=== PATIENT | female | born 1975 | race Caucasian/White ===

== ENCOUNTER 2017-03-16 15:59 | Inpatient (IN) | payer SELFPAY ==
--- NOTE | 2017-03-16 16:48 | ER Document Report ---
ED Medical Screen (RME) - General Chief Complaint: Abdominal Pain Stated Complaint: ABDOMINAL PAIN Time Seen by Provider: 03/16/17 16:24 Notes: This 41-year-old female patient with 2 day history of left lower quadrant abdominal pain and nausea. She has been taking Zofran regularly to prevent vomiting. She has past medical history of diverticulitis at least 4 times in the past and has not had insurance to have colon resection. She takes medication for high blood pressure, allergies, and GERD. She is allergic to Levaquin causing oral ulcers, but she has no problems taking Cipro. I have greeted and performed a rapid initial assessment of this patient. A comprehensive ED assessment and evaluation of the patient, analysis of test results and completion of the medical decision making process will be conducted by additional ED providers. TRAVEL OUTSIDE OF THE [place] IN LAST 30 DAYS: No - Related Data Allergies/Adverse Reactions: levofloxacin [From Levaquin] Allergy (Verified 03/16/17 16:08) Past Medical History - Social History Chew tobacco use (# tins/day): No Frequency of alcohol use: Rare Drug Abuse: None - Past Medical History Cardiac Medical History: Reports: Hx Coronary Artery Disease, Hx Hypertension Pulmonary Medical History: Reports: Hx Asthma, Hx Pneumonia Renal/ Medical History: Reports: Hx Kidney Stones - lithrotripsy. Denies: Hx Peritoneal Dialysis GI Medical History: Reports: Hx Diverticulitis, Hx Hiatal Hernia Past Surgical History: Reports: Hx Cardiac Catheterization, Hx Tonsillectomy, Hx Tubal Ligation - Immunizations Hx Diphtheria, Pertussis, Tetanus Vaccination: Yes Physical Exam - Vital signs Vitals: Temp Pulse Resp BP Pulse Ox 98.3 F 89 18 150/82 H 99 03/16/17 16:06 03/16/17 16:06 03/16/17 16:06 03/16/17 16:06 03/16/17 16:06 Course - Vital Signs Vital signs: Temp Pulse Resp BP Pulse Ox 98.3 F 89 18 150/82 H 99 03/16/17 16:06 03/16/17 16:06 03/16/17 16:06 03/16/17 16:06 03/16/17 16:06
[2017-03-16] MEDS ORDERED: NORMAL SALINE 1000 ML 1,000 ML IV PRN (17:18)
[2017-03-16] MEDS ORDERED: MORPHINE SULFATE 10 MG/ML INJ IV ONE ×2 (17:18→20:10)
[2017-03-16] MEDS ORDERED: ONDANSETRON HCL INJ/PF 4 MG/2 ML SDV IV ONE (17:18)
--- NOTE | 2017-03-16 17:20 | ER Document Report ---
ED GI/ - General Chief Complaint: Abdominal Pain Stated Complaint: ABDOMINAL PAIN Time Seen by Provider: 03/16/17 16:24 Mode of Arrival: Ambulatory Information source: Patient TRAVEL OUTSIDE OF THE [place] IN LAST 30 DAYS: No - HPI Patient complains to provider of: Abdominal pain, Diarrhea Onset: Other - 2-3 days Timing/Duration: Gradual, Persistent, Worse Quality of pain: Pressure, Sharp Severity at maximum: Moderate Severity in ED: Moderate Location: LLQ Associated symptoms: Diarrhea, Nausea Similar symptoms previously: Yes Notes: 03/16/17 17:35 Patient is a 41-year-old female presenting to the emergency room today complaining of 3 day history of left lower quadrant abdominal pain that has been worsening, it is associated with nausea and diarrhea, no vomiting, no fever , no urinary symptoms, patient has a history of diverticulitis in the past with similar symptoms - Related Data Allergies/Adverse Reactions: levofloxacin [From Levaquin] Allergy (Verified 03/16/17 20:37) Past Medical History - General Information source: Patient - Social History Smoking Status: Former Smoker Chew tobacco use (# tins/day): No Frequency of alcohol use: Rare Drug Abuse: None Family History: Reviewed & Not Pertinent - Past Medical History Cardiac Medical History: Reports: Hx Coronary Artery Disease, Hx Hypertension Pulmonary Medical History: Reports: Hx Asthma, Hx Pneumonia Renal/ Medical History: Reports: Hx Kidney Stones - lithrotripsy. Denies: Hx Peritoneal Dialysis GI Medical History: Reports: Hx Diverticulitis, Hx Hiatal Hernia Past Surgical History: Reports: Hx Cardiac Catheterization, Hx Tonsillectomy, Hx Tubal Ligation - Immunizations Hx Diphtheria, Pertussis, Tetanus Vaccination: Yes Review of Systems - Review of Systems Constitutional: No symptoms reported EENT: No symptoms reported Cardiovascular: No symptoms reported Respiratory: No symptoms reported Gastrointestinal: See HPI Genitourinary: No symptoms reported Female Genitourinary: No symptoms reported Musculoskeletal: No symptoms reported Skin: No symptoms reported Hematologic/Lymphatic: No symptoms reported Neurological/Psychological: No symptoms reported -: Yes All other systems reviewed and negative Physical Exam - Vital signs Vitals: Temp Pulse Resp BP Pulse Ox 98.3 F 89 18 150/82 H 99 03/16/17 16:06 03/16/17 16:06 03/16/17 16:06 03/16/17 16:06 03/16/17 16:06 Interpretation: Normal - General General appearance: Appears well, Alert - HEENT Head: Normocephalic, Atraumatic Eyes: Normal Pupils: PERRL - Respiratory Respiratory status: No respiratory distress Chest status: Nontender Breath sounds: Normal Chest palpation: Normal - Cardiovascular Rhythm: Regular Heart sounds: Normal auscultation Murmur: No - Abdominal Inspection: Obese Distension: No distension Bowel sounds: Normal Tenderness: Tender - Left lower quadrant Organomegaly: No organomegaly - Back Back: Normal, Nontender - Extremities General upper extremity: Normal inspection, Nontender, Normal color, Normal ROM , Normal temperature General lower extremity: Normal inspection, Nontender, Normal color, Normal ROM , Normal temperature, Normal weight bearing. No: Brigid's sign - Neurological Neuro grossly intact: Yes Cognition: Normal Orientation: AAOx4 [place] Coma Scale Eye Opening: Spontaneous [place] Coma Scale Verbal: Oriented Dwayne Coma Scale Motor: Obeys Commands [place] Coma Scale Total: 15 Speech: Normal Motor strength normal: LUE, RUE, LLE, RLE Sensory: Normal - Psychological Associated symptoms: Normal affect, Normal mood - Skin Skin Temperature: Warm Skin Moisture: Dry Skin Color: Normal Course - Re-evaluation Re-evalutation: 03/16/17 20:39 Lab and imaging findings discussed with patient at bedside which are consistent with acute diverticulitis, patient does report an allergy to Levaquin, however she reports that she is able to take Cipro without any adverse reactions, therefore Cipro and Flagyl were ordered, patient was discussed with the hospitalist service who agrees to admit for further evaluation and treatment - Vital Signs Vital signs: Temp Pulse Resp BP Pulse Ox 98.3 F 89 18 150/82 H 99 03/16/17 16:06 03/16/17 16:06 03/16/17 16:06 03/16/17 16:06 03/16/17 16:06 - Laboratory Result Diagrams: 03/16/17 17:44 03/16/17 17:44 Laboratory results interpreted by me: 03/16/17 03/16/17 17:44 17:44 WBC 15.2 H MCV 74 L MCH 25.6 L RDW 15.1 H Absolute Neutrophils 10.4 H Creatinine 0.51 L - Diagnostic Test Radiology reviewed: Image reviewed, Reports reviewed - Transfer of Care Care transferred to following provider: Dr. Oliveira Discharge - Discharge Clinical Impression: Acute diverticulitis Condition: Fair Disposition: ADMITTED INPATIENT Admitting Provider: Hospitalist Unit Admitted: Telemetry Referrals: JIMY STONER MD [Primary Care Provider] - Follow up as needed
[2017-03-16 17:58] LABS: ABSOLUTE BASOPHILS # (AUTO) 0.1 10^3/uL (0.0-0.2); ABSOLUTE EOSINOPHILS # (AUTO) 0.2 10^3/uL (0.0-0.6); ABSOLUTE LYMPHOCYTES (AUTO) 3.6 10^3/uL (0.5-4.7); ABSOLUTE MONOCYTES (AUTO) 0.9 10^3/uL (0.1-1.4); ABSOLUTE NEUT (AUTO) 10.4 10^3/uL (1.7-8.2); BASOPHILS % (AUTO) 0.6 % (0-2); EOSINOPHILS % (AUTO) 1.2 % (0-6); HEMATOCRIT 38.4 % (36.0-47.0); HEMOGLOBIN 13.3 g/dL (12.0-15.5); HGB HCT DIFFERENCE 1.5; LYMPHOCYTES % (AUTO) 23.9 % (13-45); MEAN CORPUSCULAR HEMOGLOBIN 25.6 pg (27.0-33.4); MEAN CORPUSCULAR HGB CONC 34.6 g/dL (32.0-36.0); MEAN CORPUSCULAR VOLUME 74 fl (80-97); MONOCYTES % (AUTO) 5.6 % (3-13); RED BLOOD COUNT 5.19 10^6/uL (3.72-5.28); RED CELL DISTRIBUTION WIDTH 15.1 % (11.5-14.0); SEGMENTED NEUTROPHILS % (AUTO) 68.7 % (42-78); WHITE BLOOD COUNT 15.2 10^3/uL (4.0-10.5)
[2017-03-16 18:22] LABS: ALANINE AMINOTRANSFERASE 23 U/L (9-52); ALBUMIN 4.3 g/dL (3.5-5.0); ALKALINE PHOSPHATASE 107 U/L (38-126); ANION GAP 14 (5-19); ASPARTATE AMINO TRANSFERASE 16 U/L (14-36); BILIRUBIN,DIRECT 0.4 mg/dL (0.0-0.4); BILIRUBIN,TOTAL 0.7 mg/dL (0.2-1.3); BLOOD UREA NITROGEN 11 mg/dL (7-20); CALCIUM 9.8 mg/dL (8.4-10.2); CARBON DIOXIDE 22 mmol/L (22-30); CHLORIDE 102 mmol/L (98-107); CREATININE RESULT 0.51 mg/dL (0.52-1.25); GLUCOSE 75 mg/dL (75-110); POTASSIUM 3.8 mmol/L (3.6-5.0); SODIUM 138.3 mmol/L (137-145); TOTAL PROTEIN 7.7 g/dL (6.3-8.2)
[2017-03-16 18:44] LABS: APPEARANCE,URINE CLEAR; BILIRUBIN,URINE NEGATIVE (NEGATIVE); GLUCOSE, URINE NEGATIVE (NEGATIVE); KETONES,URINE NEGATIVE (NEGATIVE); LEUKOCYTE ESTERASE,URINE NEGATIVE (NEGATIVE); NITRITE,URINE NEGATIVE (NEGATIVE); PROTEIN,URINE NEGATIVE (NEGATIVE); URINE SPECIFIC GRAVITY 1.011; UROBILINOGEN,URINE NEGATIVE mg/dL (<2.0)
[2017-03-16] MEDS ORDERED: METOCLOPRAMIDE HCL INJ/PF 10 MG/2 ML SDV IV ONE (20:10)
--- NOTE | 2017-03-16 20:10 | RADIOLOGY REPORT (SQ) ---
EXAM DESCRIPTION: CT ABD/PELVIS WITH IV ORAL COMPLETED DATE/TIME: 03/16/2017 7:56 pm REASON FOR STUDY: LLQ PAIN X 2 DAYS, PMH DIVERTICULITIS X 4 COMPARISON: 02/26/2016 TECHNIQUE: CT scan of the abdomen and pelvis performed with intravenous and oral contrast using christa bel scanning technique with dynamic intravenous contrast injection. Images reviewed with lung, soft t issue, and bone windows. Reconstructed coronal and sagittal MPR images reviewed. Delayed images for e valuation of the urinary system also acquired. All images stored on PACS. All CT scanners at this facility use dose modulation, iterative reconstruction, and/or weight based d osing when appropriate to reduce radiation dose to as low as reasonably achievable (ALARA). [facility]: Dose Right [facility]: CareDose [facility]: Dose Right [facility]: Teradose 4D [facility]: [place] CONTRAST TYPE AND DOSE: contrast/concentration: Isovue 370.00 mg/ml; Total Contrast Delivered: 100.0 ml; Total Saline Delivered: 45.0 ml RENAL FUNCTION: None required. The patient is less than 50 years old. RADIATION DOSE: Up-to-date CT equipment and radiation dose reduction techniques were employed. CTDIv ol: 21.3 - 22.4 mGy. DLP: 2238 mGy-cm. . LIMITATIONS: None. FINDINGS: LOWER CHEST: No significant findings. No nodules or infiltrates. LIVER: Normal size. No masses. No dilated ducts. SPLEEN: Normal size. No focal lesions. PANCREAS: No masses. No significant calcifications. No adjacent inflammation or peripancreatic fluid collections. Pancreatic duct not dilated. GALLBLADDER: No identified stones by CT criteria. No inflammatory changes to suggest cholecystitis. ADRENAL GLANDS: No significant masses or asymmetry. RIGHT KIDNEY AND URETER: No solid masses. No significant calcifications. No hydronephrosis or hyd roureter. LEFT KIDNEY AND URETER: No solid masses. No significant calcifications. No hydronephrosis or hydr oureter. AORTA AND VESSELS: No aneurysm. No dissection. Renal arteries, SMA, celiac without stenosis. RETROPERITONEUM: No retroperitoneal adenopathy, hemorrhage or masses. BOWEL AND PERITONEAL CAVITY: Acute inflammatory change involving the distal descending/sigmoid colon in the setting of diverticula compatible with acute diverticulitis. Small and large bowel loops are otherwise normal. No abscess or free air. APPENDIX: Normal. PELVIS: No significant masses. Normal bladder. No free fluid. ABDOMINAL WALL: No masses. No hernias. BONES: No significant or acute findings. OTHER: No other significant finding. IMPRESSION: ACUTE DIVERTICULITIS OF THE DISTAL DESCENDING/SIGMOID COLON. NO ABSCESS OR FREE AIR. TECHNICAL DOCUMENTATION: JOB ID: [id number] Quality ID # [id number]: Final reports with documentation of one or more dose reduction techniques (e.g., Au tomated exposure control, adjustment of the mA and/or kV according to patient size, use of iterative reconstruction technique) 2010 [employer] All Rights Reserved
[2017-03-16] MEDS ORDERED: HYDROMORPHONE HCL INJ/PF 2 MG/ML AMPULE IV ONE (20:15)
[2017-03-16] MEDS ORDERED: METRONIDAZOLE 500 MG/NS RTU 100 ML IV ONE (20:16)
[2017-03-16] MEDS ORDERED: INSULIN LISPRO 100 UNIT/ML 3 ML VIAL SUBCUT PRN (20:38)
[2017-03-16] MEDS ORDERED: GLUCAGON,HUMAN RECOMB 1 MG INJ IM PRN (20:38)
[2017-03-16] MEDS ORDERED: DEXTROSE 50%-WATER 25 GM/50 ML DISP.SYRIN IV PRN ×2 (20:38)
[2017-03-16] MEDS ORDERED: DEXTROSE 40% GEL 15 GM TUBE PO PRN ×2 (20:38)
[2017-03-16] MEDS ORDERED: MORPHINE SULFATE 10 MG/ML INJ IV PRN (20:40)
[2017-03-16] MEDS ORDERED: PROMETHAZINE HCL 25 MG TABLET PO PRN (20:40)
[2017-03-16] MEDS ORDERED: ACETAMINOPHEN 325 MG TABLET PO PRN (20:40)
[2017-03-16 20:44] LABS: ADD ON TESTING BLD IN LAB ACKNOWLEDGE
[2017-03-16 20:54] LABS: MAGNESIUM 1.6 mg/dL (1.6-2.3)
[2017-03-16] MEDS ORDERED: CIPROFLOXACIN 400 MG/D5W RTU 400 MG/200 ML RTUPB IV ONE (21:00)
[2017-03-16] MEDS ORDERED: IPRATROPIUM/ALBUTEROL 0.5-2.5 MG/3 ML AMPUL NEB PRN (22:46)
[2017-03-16] MEDS ORDERED: PROMETHAZINE HCL INJ 25 MG/1 ML VIAL IV PRN (22:46)
--- NOTE | 2017-03-16 23:20 | PDOC H&P ---
History of Present Illness Admission Date/PCP: 03/16/17 20:46 JIMY STONER Patient complains of: Abdominal pain History of Present Illness: CARLOS EAGLE is a 41 year old obese female, with underlying hypertension, asthma, type 2 diabetes mellitus, history of bigeminy, on metoprolol for same, and a history of 3-4 prior episodes of diverticulitis, all treated medically, who presents to the emergency room for evaluation of above complaint. Patient has been discussed with emergency room physician who evaluated the patient. She describes a 3 day history of intermittent combination sharp and cramping left lower quadrant abdominal pain which increases with movement and eating. Positive associated chills, and several watery stools, without blood. No antibiotic usage. No nausea or vomiting. No dysuria. States this is quite similar to previous episodes of diverticulitis. Has never had colonoscopy. Dictation via voice recognition software. Laboratory results are listed in [employer] and are reviewed. X-ray summary results are listed below, with full report(s) reviewed. . Social history/personal habits: . Has children. 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 Allergies/adverse reactions are listed in [employer] and are reviewed. No problems with Cipro. Home medications initially autopopulated into [employer] may not accurately reflect patient's true medications, dosages, and/or frequencies. business technology architect to reconcile medications. Medications also discussed with patient. REVIEW OF SYSTEMS: Constitutional: No fever or chills. Eyes: Wears glasses. ENT: No swallowing problems or complaints. Denies hearing loss. Pulmonary: No current complaints. Cardiovascular: No current complaints, including chest pain. Gastrointestinal: See history and present illness. Skin: No current complaints, including rashes. Hematologic: Easy bruising. Neurologic: No current complaints, including numbness or tingling. Musculoskeletal: Mild joint pain, hands. Psychiatric: Denies anxiety or depression. Endocrine: No current complaints, including polyuria. Genitourinary: No current complaints, including dysuria. PHYSICAL EXAMINATION: 5 feet 4 inches tall. 101.2 kg. BMI 38.3 kg/m. Blood pressure 137/55. Pulse 93 and regular. 99% saturation on room air. Respirations are 20 and unlabored. Temperature 97.8. initially present at her side; patient approves. He leaves just prior to physical exam. Female emergency room nurse Wanda is present. Obese otherwise well-developed female appearing approximately her stated age. Appears to feel a bit under the weather, so to speak. Nausea and occasional small amounts of emesis. Pleasant and cooperative otherwise. Skin is warm and dry. No grossly obvious evidence of rash in areas of skin examined. No subcutaneous nodules palpated. ENT: Hearing grossly normal to normal conversation. Tongue midline on protrusion pink and slightly tacky. Eyes: No scleral icterus. Pupils equal and reactive to light at 4 mm. [place] conjunctivae. Neck is supple and nontender to gentle active range of motion and palpation. Midline trachea. No palpable thyroid nodule mass enlargement or tenderness. Lymphatic: No palpable cervical or clavicular nodes. Neck and lymphatic exams limited by patient body habitus. Psychiatric: Reasonable insight into acute and chronic medical issues. Oriented to time location and why here. Lungs: Auscultation reveals clear and equal breath sounds bilaterally. No use of accessory respiratory muscles. Cardiovascular: Heart regular rate and rhythm, without gallop murmur or rub. No carotid or abdominal aortic bruits. No ankle or pedal edema. Palpable dorsalis pedis pulses. Abdomen:soft somewhat obese with positive bowel sounds. Nontender other than mild left lower quadrant discomfort to palpation, without evidence of guarding or peritoneal signs. Unable to adequately evaluate abdomen for masses or organomegaly due to discomfort and body habitus. Extremities: Feet are warm and dry. No calf tenderness to compression. No grossly obvious visual evidence of calf swelling. Gentle manipulation of lower extremities fails to reveal any obvious evidence of injury or instability to knees hips or ankles. Neurologic: Moves upper extremities grossly normally. Patellar reflexes absent. Absent Babinski. Light touch is intact at feet. Dorsiflexion and plantarflexion of feet 5 / 5 and symmetric. Past Medical History Cardiac Medical History: Reports: Hyperlipidema - History of same; taken off medications by provider, Hypertension, Other - History of bigeminy; 2 heart cath , negative 2013. No stent or angioplasty. Denies: Atrial Fibrillation, Congestive Heart Failure, Coronary Artery Disease, DVT, Myocardial Infarction, Pulmonary Embolism Pulmonary Medical History: Reports: Asthma, Pneumonia Denies: Chronic Obstructive Pulmonary Disease (COPD), Sleep Apnea EENT Medical History: Reports: Eyes - Glasses Denies: Ears, Throat Neurological Medical History: Denies: Hemorrhagic CVA, Ischemic CVA, Seizures Endocrine Medical History: Reports: Diabetes Mellitus Type 2 Denies: Diabetes Mellitus Type 1, Hyperthyroidism, Hypothyroidism Renal/ Medical History: Reports: Nephrolithiasis GI Medical History: Reports: Diverticulitis, Hiatal Hernia Denies: Cirrhosis, Hepatitis, Peptic Ulcer Disease Musculoskeltal Medical History: Reports: Other - Joint pain involving her hands Skin Medical History: Reports: None Psychiatric Medical History: Denies: Alcohol Dependency, Depression, General Anxiety Disorder, Substance Abuse, Tobacco Dependency Hematology: Reports: Other - Easy bruising Infectious Medical History: Denies: Hepatitis B, Hepatitis C Past Surgical History Past Surgical History: Reports: Cardiac Catheterization, Tonsillectomy, Tubal Ligation, Other - Lithotripsy 7 Denies: Coronary Stent - cath 2; second in 2013; no stent or angioplasty Social History Information Source: Patient, Emergency Med Personnel, [facility] Records Lives with: Spouse/Significant other Smoking Status: Former Smoker Frequency of Alcohol Use: Rare Drugs: None - Advance Directive Resuscitation Status: Full Code Surrogate healthcare decision maker:: Family History Family History: Reviewed & Not Pertinent Parental Family History Reviewed: Yes - Mother of [place]; father alive with hypertension Children Family History Reviewed: Yes - Healthy Sibling(s) Family History Reviewed.: Yes - Hypertension Medication/Allergy Home Medications: Aspirin [Aspirin EC] 81 mg PO DAILY 03/16/17 Calcium Carbonate [Antacid] 200 mg PO ASDIR PRN 03/16/17 Losartan/Hydrochlorothiazide [Losartan-Hctz 100-25 mg Tab] 1 tab PO QAM Metformin HCl [Glucophage 500 mg Tablet] 500 mg PO BIDACBS 03/16/17 Metoprolol Tartrate [Lopressor 25 mg Tablet] 25 mg PO QHS 03/16/17 Omeprazole 20 mg PO DAILY 03/16/17 Allergies/Adverse Reactions: levofloxacin [From Levaquin] Allergy (Verified 03/16/17 20:37) Physical Exam Vital Signs: Temp Pulse Resp BP Pulse Ox 97.8 F 98 20 141/70 H 98 03/16/17 21:31 03/16/17 21:31 03/16/17 22:16 03/16/17 21:31 03/16/17 22:16 Results Impressions: Abdomen/Pelvis CT 03/16/17 16:45 IMPRESSION: ACUTE DIVERTICULITIS OF THE DISTAL DESCENDING/SIGMOID COLON. NO ABSCESS OR FREE AIR. Assessment & Plan - Diagnosis (1) Diabetes mellitus type 2 in obese Is this a current diagnosis for this admission?: Yes Plan: Ice chips only at present.. Accu-Cheks with appropriate sliding scale coverage. Resume home medications as appropriate once these have been determined and reviewed. (2) HIST BIGEMINY Is this a current diagnosis for this admission?: Yes Plan: On metoprolol, 25 mg every evening for same. Resume home medications as appropriate once these have been determined and reviewed. (3) Asthma Qualifiers: Asthma severity: unspecified severity Asthma complication type: uncomplicated Qualified Code(s): J45.909 - Unspecified asthma, uncomplicated Is this a current diagnosis for this admission?: Yes Plan: As needed DuoNeb (4) Acute diverticulitis Is this a current diagnosis for this admission?: Yes Plan: Ice chips. Bowel rest otherwise. IV Pepcid. Surgery consult. Zosyn. As needed medication for control of pain, nausea and vomiting. I have strongly encouraged patient not to get out of bed without notifying staff , to avoid a fall with injury. Knee high SCDs for DVT prophylaxis, along with subcutaneous Lovenox. Impression and plans were discussed with patient, who concurs. Time spent in evaluation and management of patient: 75 minutes. - Time Time Spent: Greater than 70 Minutes Medications reviewed and adjusted accordingly: Yes Anticipated discharge: Home Within: within 72 hours - Inpatient Certification Based on my medical assessment, after consideration of the patient's comorbidities, presenting symptoms, or acuity I expect that the services needed warrant INPATIENT care.: Yes I certify that my determination is in accordance with my understanding of Medicare's requirements for reasonable and necessary INPATIENT services [42 CFR 412.3e].: Yes Medical Necessity: Need Close Monitoring Due to Risk of Patient Decompensation, Need For IV Fluids, Need for IV Antibiotics, Risk of Complication if Not Cared For in Hospital Post Hospital Care: D/C or Transfer Summary
[2017-03-16] MEDS ORDERED: PIPERACILLIN/TAZOBACTAM 3.375 GM VIAL IV PRN (23:41)
[2017-03-16] MEDS ORDERED: NORMAL SALINE 1000 ML 1,000 ML IV ONE (23:45)
[2017-03-16] MEDS ORDERED: METOPROLOL TARTRATE PF/INJ 5 MG/5 ML SDV IV ONE (23:45)
[2017-03-17] MEDS: MORPHINE SULFATE 10 MG/ML INJ IV PRN ×3 (00:27→14:54)
[2017-03-17 05:25] LABS: ABSOLUTE EOSINOPHILS # (AUTO) 0.1 10^3/uL (0.0-0.6); ABSOLUTE LYMPHOCYTES (AUTO) 2.3 10^3/uL (0.5-4.7); ABSOLUTE MONOCYTES (AUTO) 0.6 10^3/uL (0.1-1.4); ABSOLUTE NEUT (AUTO) 9.2 10^3/uL (1.7-8.2); BASOPHILS % (AUTO) 0.4 % (0-2); EOSINOPHILS % (AUTO) 0.5 % (0-6); HEMATOCRIT 34.4 % (36.0-47.0); HEMOGLOBIN 11.9 g/dL (12.0-15.5); HGB HCT DIFFERENCE 1.3; LYMPHOCYTES % (AUTO) 18.5 % (13-45); MEAN CORPUSCULAR HEMOGLOBIN 25.6 pg (27.0-33.4); MEAN CORPUSCULAR HGB CONC 34.6 g/dL (32.0-36.0); MEAN CORPUSCULAR VOLUME 74 fl (80-97); MONOCYTES % (AUTO) 5.2 % (3-13); RED BLOOD COUNT 4.64 10^6/uL (3.72-5.28); RED CELL DISTRIBUTION WIDTH 14.6 % (11.5-14.0); SEGMENTED NEUTROPHILS % (AUTO) 75.4 % (42-78); WHITE BLOOD COUNT 12.2 10^3/uL (4.0-10.5)
[2017-03-17] MEDS ORDERED: PIPERACILLIN/TAZOBACTAM 3.375 GM VIAL IV ONE (05:39)
[2017-03-17 05:43] LABS: ANION GAP 11 (5-19); BLOOD UREA NITROGEN 7 mg/dL (7-20); CARBON DIOXIDE 24 mmol/L (22-30); CHLORIDE 102 mmol/L (98-107); CREATININE RESULT 0.53 mg/dL (0.52-1.25); GLUCOSE 116 mg/dL (75-110); POTASSIUM 3.8 mmol/L (3.6-5.0)
[2017-03-17] MEDS ORDERED: PIPERACILLIN SODIUM/TAZOBACTAM 3.375 GM in NORMAL SALINE 100 ML IV SCH (06:00)
[2017-03-17] MEDS ORDERED: (PENDING PHARMACY ID) (Losartan/Hydrochlorothiazide [Losartan-Hctz 100-25 Mg Tab] 1 TAB) PO SCH (08:00)
[2017-03-17] MEDS ORDERED: METOPROLOL TARTRATE PF/INJ 5 MG/5 ML SDV IV SCH (10:00)
[2017-03-17] MEDS: ASPIRIN 81 MG TABLET, ENT COATED PO SCH (10:52)
[2017-03-17] MEDS: HYDROCHLOROTHIAZIDE 25 MG TABLET PO SCH (10:53)
[2017-03-17] MEDS: LOSARTAN POTASSIUM 50 MG TABLET PO SCH (10:55)
[2017-03-17] MEDS: FAMOTIDINE INJ/PF 20 MG/2 ML SDV IV SCH ×2 (10:55→21:41)
[2017-03-17] MEDS: ENOXAPARIN SODIUM INJ 40 MG/0.4 ML DISP.SYRIN SUBCUT SCH (10:57)
[2017-03-17] MEDS: PIPERACILLIN SODIUM/TAZOBACTAM 3.375 GM in DEXTROSE 5%-WATER 100 ML IV SCH ×2 (12:27→17:34)
--- NOTE | 2017-03-17 14:34 | PDOC CONSULTATION ---
Consultation Consult Date: 03/17/17 Attending physician:: NORRIS JAIMES Consult reason:: Sigmoid diverticulitis History of Present Illness Admission Date/PCP: 03/16/17 22:51 JIMY STONER Patient complains of: Lower abdominal pains with nausea History of Present Illness: CARLOS EAGLE is a 41 year old obese female, with underlying hypertension, asthma, type 2 diabetes mellitus, history of bigeminy, on metoprolol for same, and a history of 3-4 prior episodes of diverticulitis, all treated medically, who presents to the emergency room for evaluation of above complaint. Patient has been discussed with emergency room physician who evaluated the patient. She describes a 3 day history of intermittent combination sharp and cramping left lower quadrant abdominal pain which increases with movement and eating. Positive associated chills, and several watery stools, without blood. No antibiotic usage. No nausea or vomiting. No dysuria. States this is quite similar to previous episodes of diverticulitis. Has never had colonoscopy. Dictation via voice recognition software. Laboratory results are listed in [employer] and are reviewed. X-ray summary results are listed below, with full report(s) reviewed. . Social history/personal habits: . Has children. 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 Allergies/adverse reactions are listed in [employer] and are reviewed. No problems with Cipro. Home medications initially autopopulated into [employer] may not accurately reflect patient's true medications, dosages, and/or frequencies. veterinary technology instructor to reconcile medications. Medications also discussed with patient. REVIEW OF SYSTEMS: Constitutional: No fever or chills. Eyes: Wears glasses. ENT: No swallowing problems or complaints. Denies hearing loss. Pulmonary: No current complaints. Cardiovascular: No current complaints, including chest pain. Gastrointestinal: See history and present illness. Skin: No current complaints, including rashes. Hematologic: Easy bruising. Neurologic: No current complaints, including numbness or tingling. Musculoskeletal: Mild joint pain, hands. Psychiatric: Denies anxiety or depression. Endocrine: No current complaints, including polyuria. Genitourinary: No current complaints, including dysuria. PHYSICAL EXAMINATION: 5 feet 4 inches tall. 101.2 kg. BMI 38.3 kg/m. Blood pressure 137/55. Pulse 93 and regular. 99% saturation on room air. Respirations are 20 and unlabored. Temperature 97.8. initially present at her side; patient approves. He leaves just prior to physical exam. Female emergency room nurse Wanda is present. Obese otherwise well-developed female appearing approximately her stated age. Appears to feel a bit under the weather, so to speak. Nausea and occasional small amounts of emesis. Pleasant and cooperative otherwise. Skin is warm and dry. No grossly obvious evidence of rash in areas of skin examined. No subcutaneous nodules palpated. ENT: Hearing grossly normal to normal conversation. Tongue midline on protrusion pink and slightly tacky. Eyes: No scleral icterus. Pupils equal and reactive to light at 4 mm. [place] conjunctivae. Neck is supple and nontender to gentle active range of motion and palpation. Midline trachea. No palpable thyroid nodule mass enlargement or tenderness. Lymphatic: No palpable cervical or clavicular nodes. Neck and lymphatic exams limited by patient body habitus. Psychiatric: Reasonable insight into acute and chronic medical issues. Oriented to time location and why here. Lungs: Auscultation reveals clear and equal breath sounds bilaterally. No use of accessory respiratory muscles. Cardiovascular: Heart regular rate and rhythm, without gallop murmur or rub. No carotid or abdominal aortic bruits. No ankle or pedal edema. Palpable dorsalis pedis pulses. Abdomen:soft somewhat obese with positive bowel sounds. Nontender other than mild left lower quadrant discomfort to palpation, without evidence of guarding or peritoneal signs. Unable to adequately evaluate abdomen for masses or organomegaly due to discomfort and body habitus. Extremities: Feet are warm and dry. No calf tenderness to compression. No grossly obvious visual evidence of calf swelling. Gentle manipulation of lower extremities fails to reveal any obvious evidence of injury or instability to knees hips or ankles. Neurologic: Moves upper extremities grossly normally. Patellar reflexes absent. Absent Babinski. Light touch is intact at feet. Dorsiflexion and plantarflexion of feet 5 / 5 and symmetric. Past Medical History Cardiac Medical History: Reports: Hyperlipidema - History of same; taken off medications by provider, Hypertension, Other - History of bigeminy; 2 heart cath , negative 2013. No stent or angioplasty. Denies: Atrial Fibrillation, Congestive Heart Failure, Coronary Artery Disease, DVT, Myocardial Infarction, Pulmonary Embolism Pulmonary Medical History: Reports: Asthma, Pneumonia Denies: Chronic Obstructive Pulmonary Disease (COPD), Sleep Apnea EENT Medical History: Reports: Eyes - Glasses, Other - Easy bruising Denies: Ears, Throat Neurological Medical History: Denies: Hemorrhagic CVA, Ischemic CVA, Seizures Endocrine Medical History: Reports: Diabetes Mellitus Type 2 Denies: Diabetes Mellitus Type 1, Hyperthyroidism, Hypothyroidism Renal/ Medical History: Reports: Nephrolithiasis GI Medical History: Reports: Diverticulitis, Hiatal Hernia Denies: Cirrhosis, Hepatitis, Peptic Ulcer Disease Musculoskeltal Medical History: Reports: Other - Joint pain involving her hands Skin Medical History: Reports: None Psychiatric Medical History: Denies: Alcohol Dependency, Depression, General Anxiety Disorder, Substance Abuse, Tobacco Dependency Hematology: Reports: Other - Easy bruising Infectious Medical History: Denies: Hepatitis B, Hepatitis C Past Surgical History Past Surgical History: Reports: Cardiac Catheterization, Tonsillectomy, Tubal Ligation, Other - Lithotripsy 7 Denies: Coronary Stent - 2; second in 2013; no stent or angioplasty Social History Lives with: Spouse/Significant other Smoking Status: Unknown if Ever Smoked Frequency of Alcohol Use: Rare Drugs: None Hx Prescription Drug Abuse: No - Advance Directive Resuscitation Status: Full Code Family History Family History: Reviewed & Not Pertinent Parental Family History Reviewed: Yes - mother of MT in her 50's,Had Diabetes Children Family History Reviewed: Yes - noncontributory Sibling(s) Family History Reviewed.: Yes Medication/Allergy Home Medications: Aspirin [Aspirin EC] 81 mg PO DAILY 03/16/17 Calcium Carbonate [Antacid] 200 mg PO ASDIR PRN 03/16/17 Losartan/Hydrochlorothiazide [Losartan-Hctz 100-25 mg Tab] 1 tab PO QAM Metformin HCl [Glucophage 500 mg Tablet] 500 mg PO BIDACBS 03/16/17 Metoprolol Tartrate [Lopressor 25 mg Tablet] 25 mg PO QHS 03/16/17 Omeprazole 20 mg PO DAILY 03/16/17 Metronidazole [Flagyl 500 mg Tablet] 500 mg PO Q8 #42 tablet 03/18/17 Oxycodone HCl/Acetaminophen [Percocet 5-325 mg Tablet] 1 tab PO Q6HP PRN #10 tablet 03/18/17 Sulfamethoxazole/Trimethoprim [Septra-Ds 800-160 mg Tablet] 1 tab PO BID #20 tablet 03/18/17 Allergies/Adverse Reactions: levofloxacin [From Levaquin] Allergy (Verified 03/16/17 20:37) Physical Exam Vital Signs: Temp Pulse Resp BP Pulse Ox 99.2 F 82 17 128/61 H 97 03/17/17 12:06 03/17/17 12:06 03/17/17 12:06 03/17/17 12:06 03/17/17 12:06 Intake & Output 03/16/17 03/17/17 03/18/17 06:59 06:59 06:59 Intake Total 500 Balance 500 Weight 101.1 kg General appearance: PRESENT: mild distress Head exam: PRESENT: atraumatic, normocephalic Eye exam: PRESENT: conjunctival injection, conjunctiva pink, EOMI, PERRLA Ear exam: PRESENT: normal external ear exam Mouth exam: PRESENT: moist, neck supple Neck exam: PRESENT: full ROM Respiratory exam: PRESENT: clear to auscultation sophia Cardiovascular exam: PRESENT: RRR Pulses: PRESENT: normal dorsalis pedis pul Vascular exam: PRESENT: normal capillary refill GI/Abdominal exam: PRESENT: soft, tenderness - bo0th LQ more on left side Rectal exam: PRESENT: deferred Extremities exam: PRESENT: full ROM Musculoskeletal exam: PRESENT: full ROM Neurological exam: PRESENT: alert, oriented to person, oriented to place, oriented to time, oriented to situation, reflexes normal, CN II-XII grossly intact, motor sensory deficit Psychiatric exam: PRESENT: other - normal mood and affect Results Laboratory Results: 03/17/17 03:52 03/17/17 03:52 03/17/17 03/17/17 03:52 03:52 WBC 12.2 H RBC 4.64 Hgb 11.9 L Hct 34.4 L MCV 74 L MCH 25.6 L MCHC 34.6 RDW 14.6 H Plt Count 239 Seg Neutrophils % 75.4 Lymphocytes % 18.5 Monocytes % 5.2 Eosinophils % 0.5 Basophils % 0.4 Absolute Neutrophils 9.2 H Absolute Lymphocytes 2.3 Absolute Monocytes 0.6 Absolute Eosinophils 0.1 Absolute Basophils 0.0 Sodium 137.0 Potassium 3.8 Chloride 102 Carbon Dioxide 24 Anion Gap 11 BUN 7 Creatinine 0.53 Est GFR ( Amer) > 60 Est GFR (Non-Af Amer) > 60 Glucose 116 H Calcium 9.0 Impressions: Abdomen/Pelvis CT 03/16/17 16:45 IMPRESSION: ACUTE DIVERTICULITIS OF THE DISTAL DESCENDING/SIGMOID COLON. NO ABSCESS OR FREE AIR. Assessment & Plan - Diagnosis (1) Acute diverticulitis Is this a current diagnosis for this admission?: Yes Plan: 1 continue IV antibiotics 2 continue clear liquids for now 3 continue hydration 4 we will follow the patient with you - Time Time Spent: 50 to 70 Minutes - Inpatient Certification Medical Necessity: Need For IV Fluids - Has acute diverticulitis of Desc/ sigmoid colon, Need for IV Antibiotics
--- NOTE | 2017-03-17 15:00 | PDOC PROGRESS REPORT ---
Subjective Progress Note for:: 03/17/17 Subjective:: Pt states that she is having left lower abd pain. Pt states that she has had diverticulitis 3 times before and this makes her 4th episode. Pt states that she has abd pain currently. Physical Exam Vital Signs: Temp Pulse Resp BP Pulse Ox 99.2 F 82 17 128/61 H 97 03/17/17 12:06 03/17/17 12:06 03/17/17 12:06 03/17/17 12:06 03/17/17 12:06 Intake & Output 03/16/17 03/17/17 03/18/17 06:59 06:59 06:59 Intake Total 500 Balance 500 Weight 101.1 kg General appearance: PRESENT: no acute distress, well-developed, well-nourished Head exam: PRESENT: atraumatic, normocephalic Eye exam: PRESENT: conjunctiva pink, EOMI. ABSENT: scleral icterus Ear exam: PRESENT: normal external ear exam Mouth exam: PRESENT: dry mucosa Neck exam: ABSENT: carotid bruit, JVD, lymphadenopathy, thyromegaly Respiratory exam: PRESENT: clear to auscultation sophia. ABSENT: rales, rhonchi, wheezes Cardiovascular exam: PRESENT: RRR. ABSENT: diastolic murmur, rubs, systolic murmur Pulses: PRESENT: normal dorsalis pedis pul Vascular exam: PRESENT: normal capillary refill GI/Abdominal exam: PRESENT: normal bowel sounds, tenderness - + tenderness of the lower abd, + BS. ABSENT: distended, guarding, mass, organolmegaly, rebound Rectal exam: PRESENT: deferred Extremities exam: PRESENT: full ROM. ABSENT: calf tenderness, clubbing, pedal edema Neurological exam: PRESENT: alert, awake, oriented to person, oriented to place , oriented to time, oriented to situation, CN II-XII grossly intact. ABSENT: motor sensory deficit Psychiatric exam: PRESENT: appropriate affect, normal mood. ABSENT: homicidal ideation, suicidal ideation Skin exam: PRESENT: dry, intact, warm. ABSENT: cyanosis, rash Results Laboratory Results: 03/17/17 03:52 03/17/17 03:52 03/17/17 03/17/17 03:52 03:52 WBC 12.2 H RBC 4.64 Hgb 11.9 L Hct 34.4 L MCV 74 L MCH 25.6 L MCHC 34.6 RDW 14.6 H Plt Count 239 Seg Neutrophils % 75.4 Lymphocytes % 18.5 Monocytes % 5.2 Eosinophils % 0.5 Basophils % 0.4 Absolute Neutrophils 9.2 H Absolute Lymphocytes 2.3 Absolute Monocytes 0.6 Absolute Eosinophils 0.1 Absolute Basophils 0.0 Sodium 137.0 Potassium 3.8 Chloride 102 Carbon Dioxide 24 Anion Gap 11 BUN 7 Creatinine 0.53 Est GFR ( Amer) > 60 Est GFR (Non-Af Amer) > 60 Glucose 116 H Calcium 9.0 Impressions: Abdomen/Pelvis CT 03/16/17 16:45 IMPRESSION: ACUTE DIVERTICULITIS OF THE DISTAL DESCENDING/SIGMOID COLON. NO ABSCESS OR FREE AIR. Assessment & Plan - Diagnosis (1) Acute diverticulitis Is this a current diagnosis for this admission?: Yes Plan: Will continue antibiotics. Will place on Clear liquids. (2) Diabetes mellitus type 2 in obese Is this a current diagnosis for this admission?: Yes Plan: Will continue SSI. (3) HTN (hypertension) Qualifiers: Hypertension type: essential hypertension Qualified Code(s): I10 - Essential (primary) hypertension Is this a current diagnosis for this admission?: Yes Plan: Will continue home medications. (4) DVT prophylaxis Is this a current diagnosis for this admission?: Yes Plan: Lovenox. - Time Time Spent with patient: 15-24 minutes
[2017-03-17] MEDS ORDERED: OXYCODONE-ACETAMINOPHEN 5-325 MG TABLET PO PRN (17:55)
[2017-03-17] MEDS: NORMAL SALINE 1000 ML 1,000 ML IV PRN (21:57)
[2017-03-17] MEDS ORDERED: METOPROLOL TARTRATE 25 MG TABLET PO SCH (22:00)
[2017-03-18] MEDS: PIPERACILLIN SODIUM/TAZOBACTAM 3.375 GM in DEXTROSE 5%-WATER 100 ML IV SCH ×2 (00:44→05:10)
[2017-03-18] MEDS: NORMAL SALINE 1000 ML 1,000 ML IV PRN (05:10)
[2017-03-18] MEDS: LOSARTAN POTASSIUM 50 MG TABLET PO SCH (10:38)
[2017-03-18] MEDS: ASPIRIN 81 MG TABLET, ENT COATED PO SCH (10:38)
[2017-03-18] MEDS: HYDROCHLOROTHIAZIDE 25 MG TABLET PO SCH (10:38)
[2017-03-18] MEDS: ENOXAPARIN SODIUM INJ 40 MG/0.4 ML DISP.SYRIN SUBCUT SCH (10:39)
[2017-03-18] MEDS: FAMOTIDINE INJ/PF 20 MG/2 ML SDV IV SCH (10:40)
--- NOTE | 2017-03-18 10:43 | PDOC DISCHARGE SUMMARY ---
General - Admit/Disc Date/PCP Admission Date/Primary Care Provider: 03/16/17 22:51 JIMY STONER Discharge Date: 03/18/17 - Discharge Diagnosis (1) Acute diverticulitis Is this a current diagnosis for this admission?: Yes Summary: Pt was placed on Zosyn and switched to Bactrim and Flagyl. (2) Diabetes mellitus type 2 in obese Is this a current diagnosis for this admission?: Yes Summary: Pt will continue home medication. (3) HTN (hypertension) Is this a current diagnosis for this admission?: Yes Summary: Will continue home medication - Additional Information Resuscitation Status: Full Code Discharge Diet: Diabetic, Other (Comments) - soft diet Discharge Activity: Activity As Tolerated, No Lifting Over 10 Pounds Home Medications: Aspirin [Aspirin EC] 81 mg PO DAILY 03/16/17 Calcium Carbonate [Antacid] 200 mg PO ASDIR PRN 03/16/17 Losartan/Hydrochlorothiazide [Losartan-Hctz 100-25 mg Tab] 1 tab PO QAM Metformin HCl [Glucophage 500 mg Tablet] 500 mg PO BIDACBS 03/16/17 Metoprolol Tartrate [Lopressor 25 mg Tablet] 25 mg PO QHS 03/16/17 Omeprazole 20 mg PO DAILY 03/16/17 Metronidazole [Flagyl 500 mg Tablet] 500 mg PO Q8 #42 tablet 03/18/17 Oxycodone HCl/Acetaminophen [Percocet 5-325 mg Tablet] 1 tab PO Q6HP PRN #10 tablet 03/18/17 Sulfamethoxazole/Trimethoprim [Septra-Ds 800-160 mg Tablet] 1 tab PO BID #20 tablet 03/18/17 History of Present Illness History of Present Illness: CARLOS EAGLE is a 42 year old female with abdominal pain. Hospital Course Hospital Course: Patient is a 42-year-old female that was admitted to our hospital with abdominal pain. Patient has CT of abdomen was demonstrated acute diverticulitis of the descending and sigmoid colon with no evidence of abscess. Patient was placed on Zosyn and abdominal pain greatly improved on second day. Patient was requesting to go home and have diet changed. Patient was switched to Bactrim due to allergy to fluoroquinolones and Flagyl was added. Patient was seen by surgery who recommended continuation of current treatment. Patient was told that she will need to follow-up with GI and surgery as outpatient. Patient will need to have resection of diseased bowel removed once acute inflammatory process has resolved due to multiple episodes of diverticulitis. Physical Exam Vital Signs: Temp Pulse Resp BP Pulse Ox 97.6 F 78 16 125/68 97 03/18/17 07:59 03/18/17 09:14 03/18/17 09:14 03/18/17 07:59 03/18/17 09:14 Intake & Output 03/17/17 03/18/17 03/19/17 06:59 06:59 06:59 Intake Total 500 3703 Output Total 800 Balance 500 2903 Weight 101.1 kg General appearance: PRESENT: no acute distress, well-developed, well-nourished Head exam: PRESENT: atraumatic, normocephalic Eye exam: PRESENT: conjunctiva pink, EOMI. ABSENT: scleral icterus Ear exam: PRESENT: normal external ear exam Mouth exam: PRESENT: moist, tongue midline Neck exam: ABSENT: carotid bruit, JVD, lymphadenopathy, thyromegaly Respiratory exam: PRESENT: clear to auscultation sophia. ABSENT: rales, rhonchi, wheezes Cardiovascular exam: PRESENT: RRR. ABSENT: diastolic murmur, rubs, systolic murmur Pulses: PRESENT: normal dorsalis pedis pul GI/Abdominal exam: PRESENT: normal bowel sounds, soft, tenderness - left lower qd tenderness but much improved from yesterday.. ABSENT: distended, guarding, mass, organolmegaly, rebound Rectal exam: PRESENT: deferred Extremities exam: PRESENT: full ROM. ABSENT: calf tenderness, clubbing, pedal edema Neurological exam: PRESENT: alert, awake, oriented to person, oriented to place , oriented to time, oriented to situation, CN II-XII grossly intact. ABSENT: motor sensory deficit Psychiatric exam: PRESENT: appropriate affect, normal mood. ABSENT: homicidal ideation, suicidal ideation Skin exam: PRESENT: dry, intact, warm. ABSENT: cyanosis, rash Results Laboratory Results: 03/17/17 03:52 03/17/17 03:52 Impressions: Abdomen/Pelvis CT 03/16/17 16:45 IMPRESSION: ACUTE DIVERTICULITIS OF THE DISTAL DESCENDING/SIGMOID COLON. NO ABSCESS OR FREE AIR.
[2017-03-18 10:50] VITALS: BP 127/56
[2017-03-18] MEDS ORDERED: METRONIDAZOLE 500 MG TABLET PO SCH (14:00)
[2017-03-18] MEDS ORDERED: SULFAMETHOXAZOLE/TRIMETHOPRIM 800-160 MG TABLET PO SCH (22:00)
== END 2017-03-18 12:22 | disposition home or self-care (01) | DRG 392 ==
LOC: ER 15:59 → UNDOADMIN 20:46 → EH 20:46 → 4N 23:35
PROVIDERS: ADMIT Family Medicine; ATTEND Family Medicine
DX: K57.32 Diverticulitis of large intestine without perforation or abscess without bleeding (principal); E11.9 Type 2 diabetes mellitus without complications; E66.9 Obesity, unspecified; J45.909 Unspecified asthma, uncomplicated; E78.5 Hyperlipidemia, unspecified; I49.3 Ventricular premature depolarization; Z68.38 Body mass index [BMI] 38.0-38.9, adult; Z79.82 Long term (current) use of aspirin; Z88.2 Allergy status to sulfonamides; Z79.84 Long term (current) use of oral hypoglycemic drugs; Z98.51 Tubal ligation status; Z88.1 Allergy status to other antibiotic agents
CPT/HCPCS: 36415; 74177; 80048; 80053; 81001; 82962; 83735; 85025; 87040; 94799; 96365; 96375; 99285; J0744; J1170; J1650; J2270; J2405; J2543; J2550; J2765; J3490; J7030; S0028

== ENCOUNTER → 2017-07-17 | Outpatient (CLI) | payer BC ==
--- NOTE | 2017-07-17 17:57 | WOMENS IMAGING REPORT ---
EXAM DESCRIPTION: BILAT SCREENING MAMMO W/CAD COMPLETED DATE/TIME: 07/17/2017 7:46 am REASON FOR STUDY: SCREENING MAMMO Z12.31 ENCNTR SCREEN MAMMOGRAM FOR MALIGNANT NEOPLASM OF [place] COMPARISON: 2015 TECHNIQUE: Standard craniocaudal and mediolateral oblique views of each breast recorded using [employer] l acquisition. LIMITATIONS: None. FINDINGS: RIGHT BREAST MASSES: No suspicious masses. CALCIFICATIONS: Very faint calcifications are present over the right nipple on the CC view, and right retroareolar region on CC and MLO orientations. Further investigation with compression magnificatio n views and right breast 90 mediolateral view are recommended. If possible, compression cone tomosy nthesis images of the retroareolar region could be performed. ARCHITECTURAL DISTORTION: None. DEVELOPING DENSITY: None. ASYMMETRY: None noted. OTHER: No other significant findings. LEFT BREAST MASSES: No suspicious masses. CALCIFICATIONS: No new or suspicious calcifications. ARCHITECTURAL DISTORTION: None. DEVELOPING DENSITY: None. ASYMMETRY: None noted. OTHER: No other significant findings. Read with the assistance of CAD. .[facility] - R2 Cenova Version 1.3 .[facility] - R2 Cenova Version 1.3 .[facility] - R2 Cenova Version 2.4 .[facility] - R2 Cenova Version 2.4 .[facility] - R2 Graphic Design Teacher Version 9.2 IMPRESSION: Right breast calcifications for which additional diagnostic mammogram/tomosynthesis is r ecommended No mammographic evidence for malignancy left breast. BREAST DENSITY: b. There are scattered areas of fibroglandular density. BIRAD: 0 Incomplete: Needs Additional Imaging Evaluation and/or prior Mammograms for Comparison. RECOMMENDATION: RECOMMENDED FOLLOW-UP: Additional diagnostic right breast mammograms for calcificati ons. Tomosynthesis if possible The patient will be contacted for additional imaging. ROUTINE SCREENING COMMENT: The patient has been notified of the results by letter per SA requirements. Additional no tification policies are in place for contacting patient with suspicious or incomplete findings. Quality ID #[id number]: The [employer] recommends an annual screening mammogram for women aged 40 years or over. This facility utilizes a reminder system to ensure that all patients receive reminder letters, and/or direct phone calls for appointments. This includes reminders for routine scr eening mammograms, diagnostic mammograms, or other Breast Imaging Interventions when appropriate. Th is patient will be placed in the appropriate reminder system. The [employer] (ACR) has developed recommendations for screening MRI of the breast s in certain patient populations, to be used in conjunction with mammography. Breast MRI surveillanc e may be appropriate for women with more than 20% lifetime risk of developing breast cancer as deter mined by genetic testing, significant family history of the disease, or history of mantle radiation f or Hodgkins Disease. ACR Practice Guidelines 2008. TECHNICAL DOCUMENTATION: FINDING NUMBER: (1) ASSESSMENT: (1) JOB ID: [id number] [employer]- All Rights Reserved
== END ==
LOC: WI 07:25
PROVIDERS: ATTEND Internal Medicine
DX: Z12.31 Encounter for screening mammogram for malignant neoplasm of breast (principal); R92.0 Mammographic microcalcification found on diagnostic imaging of breast
CPT/HCPCS: 77067

== ENCOUNTER → 2017-08-01 | Outpatient (CLI) | payer BC ==
--- NOTE | 2017-08-01 08:46 | WOMENS IMAGING REPORT ---
EXAM DESCRIPTION: RIGHT DIAGNOSTIC MAMMO W/CAD COMPLETED DATE/TIME: 08/01/2017 8:25 am REASON FOR STUDY: MICROCALCIFICATIONS R92.0 MAMMOGRAPHIC MICROCALCIFICATION FOUND ON DX IMAGING OF COMPARISON: 07/30/2015, 07/17/2017 TECHNIQUE: Cone compression magnification craniocaudal and 90 mediolateral images of the breast re corded with digital acquisition. Additional right breast 90 mediolateral and craniocaudad views LIMITATIONS: None. FINDINGS: BREAST: Right MASSES: No suspicious nodules. Stable intramammary lymph node deep central right breast CALCIFICATIONS: There are benign appearing vascular calcifications in the right breast retroareolar r egion 12 o'clock ARCHITECTURAL DISTORTION: None. DEVELOPING DENSITY: None. ASYMMETRY: None noted. OTHER: No other significant findings. Read with the assistance of CAD. .[facility] - R2 Cenova Version 1.3 .[facility] Imaging - R2 Cenova Version 1.3 .[facility] - R2 Cenova Version 2.4 .[facility] - R2 Cenova Version 2.4 .[facility] - R2 Entry Level Manager Version 9.2 IMPRESSION: No mammographic evidence for malignancy right breast BREAST DENSITY: b. There are scattered areas of fibroglandular density. BIRAD: 2 Benign findings. RECOMMENDATION: RECOMMENDED FOLLOW UP: Please continue yearly bilateral screening mammography in Jun. Consider bilateral screening tomosynthesis SPECIFIC INTERVENTION/IMAGING/CONSULTATION RECOMMENDED:No additional intervention/ imaging/consultati on needed at this time. COMMUNICATION:Patient notified at the time of service, and by letter COMMENT: The patient has been notified of the results by letter per SA requirements. Additional no tification policies are in place for contacting patient with suspicious or incomplete findings. Quality ID #[id number]: The [employer] recommends an annual screening mammogram for women aged 40 years or over. This facility utilizes a reminder system to ensure that all patients receive reminder letters, and/or direct phone calls for appointments. This includes reminders for routine scr eening mammograms, diagnostic mammograms, or other Breast Imaging Interventions when appropriate. Th is patient will be placed in the appropriate reminder system. The [employer] (ACR) has developed recommendations for screening MRI of the breast s in certain patient populations, to be used in conjunction with mammography. Breast MRI surveillanc e may be appropriate for women with more than 20% lifetime risk of developing breast cancer as deter mined by genetic testing, significant family history of the disease, or history of mantle radiation f or Hodgkins Disease. ACR Practice Guidelines 2008. TECHNICAL DOCUMENTATION: FINDING NUMBER: (1) ASSESSMENT: (1) JOB ID: [id number] [employer]- All Rights Reserved
== END ==
LOC: WI 07:56
PROVIDERS: ATTEND Internal Medicine
DX: R92.0 Mammographic microcalcification found on diagnostic imaging of breast (principal)

== ENCOUNTER → 2017-08-28 | Outpatient (CLI) | payer BC ==
[2017-08-28 09:27] LABS: ABSOLUTE EOSINOPHILS # (AUTO) 0.1 10^3/uL (0.0-0.6); ABSOLUTE LYMPHOCYTES (AUTO) 1.8 10^3/uL (0.5-4.7); ABSOLUTE MONOCYTES (AUTO) 0.4 10^3/uL (0.1-1.4); ABSOLUTE NEUT (AUTO) 3.3 10^3/uL (1.7-8.2); BASOPHILS % (AUTO) 0.7 % (0-2); HEMATOCRIT 38.7 % (36.0-47.0); HEMOGLOBIN 13.2 g/dL (12.0-15.5); MEAN CORPUSCULAR HEMOGLOBIN 25.9 pg (27.0-33.4); MEAN CORPUSCULAR HGB CONC 34.1 g/dL (32.0-36.0); MEAN CORPUSCULAR VOLUME 76 fl (80-97); MONOCYTES % (AUTO) 7.5 % (3-13); PLATELET COUNT 255 10^3/uL (150-450); RED BLOOD COUNT 5.09 10^6/uL (3.72-5.28); RED CELL DISTRIBUTION WIDTH 14.5 % (11.5-14.0); SEGMENTED NEUTROPHILS % (AUTO) 57.8 % (42-78); TOTAL CELLS COUNTED % (AUTO) 100 %; WHITE BLOOD COUNT 5.8 10^3/uL (4.0-10.5)
[2017-08-28 09:48] LABS: ALANINE AMINOTRANSFERASE 39 U/L (9-52); ALBUMIN 4.1 g/dL (3.5-5.0); ALKALINE PHOSPHATASE 90 U/L (38-126); ANION GAP 11 (5-19); ASPARTATE AMINO TRANSFERASE 26 U/L (14-36); BILIRUBIN,DIRECT 0.4 mg/dL (0.0-0.4); BILIRUBIN,TOTAL 0.8 mg/dL (0.2-1.3); BLOOD UREA NITROGEN 9 mg/dL (7-20); CALCIUM 8.8 mg/dL (8.4-10.2); CARBON DIOXIDE 29 mmol/L (22-30); CHLORIDE 102 mmol/L (98-107); CHOLESTEROL 176.26 mg/dL (0-200); GLUCOSE 118 mg/dL (75-110); POTASSIUM 3.6 mmol/L (3.6-5.0); SODIUM 141.7 mmol/L (137-145); TOTAL PROTEIN 6.7 g/dL (6.3-8.2); TRIGLYCERIDES 167 mg/dL (<150)
[2017-08-28 09:59] LABS: DIRECT LDL 113 mg/dL (<100)
[2017-08-28 10:03] LABS: VLDL CHOLESTEROL 33.4 mg/dL (10-31)
[2017-08-29 12:38] LABS: CREATININE URINE 218.5 mg/dL (Not Estab.); MICROALBUMIN URINE 48.6 ug/mL (Not Estab.)
== END ==
LOC: LAB 09:01
PROVIDERS: ATTEND Internal Medicine
DX: Z00.00 Encounter for general adult medical examination without abnormal findings (principal); Z13.220 Encounter for screening for lipoid disorders; I10 Essential (primary) hypertension; Z13.21 Encounter for screening for nutritional disorder; E11.9 Type 2 diabetes mellitus without complications; Z13.29 Encounter for screening for other suspected endocrine disorder
CPT/HCPCS: 36415; 80053; 80061; 82043; 82306; 82570; 83036; 84443; 85025

== ENCOUNTER 2018-02-22 16:03 | Inpatient (IN) | payer BC ==
[2018-02-22] MEDS ORDERED: FENTANYL CITRATE INJ/PF 100 MCG/2 ML AMPUL IV ONE (16:43)
[2018-02-22] MEDS ORDERED: ONDANSETRON HCL INJ/PF 4 MG/2 ML SDV IV ONE (16:43)
[2018-02-22] MEDS ORDERED: NORMAL SALINE 1000 ML 1,000 ML IV ONE (16:43)
[2018-02-22] MEDS ORDERED: METRONIDAZOLE RTU 500 MG/NS 100 ML IV ONE (16:45)
--- NOTE | 2018-02-22 16:46 | ER Document Report ---
ED Medical Screen (RME) - General Chief Complaint: Abdominal Pain Stated Complaint: DIARRHEA/VOMITING Time Seen by Provider: 02/22/18 16:43 Notes: 42 years old female with a history of diverticulitis, presents today with 2-3 day history of left lower quadrant abdominal pain and 1 day history of fever chills nausea. And increased in pain over the left lower quadrant. She is diabetic Sharp tenderness over the left lower quadrant noted. With guarding. TRAVEL OUTSIDE OF THE [place] IN LAST 30 DAYS: No - Related Data Allergies/Adverse Reactions: levofloxacin [From Levaquin] Allergy (Verified 02/22/18 16:09) Past Medical History - Social History Chew tobacco use (# tins/day): No Frequency of alcohol use: Rare Drug Abuse: None - Past Medical History Cardiac Medical History: Reports: Hx Hypercholesterolemia - History of same; taken off medications by provider, Hx Hypertension Denies: Hx Atrial Fibrillation, Hx Congestive Heart Failure, Hx Coronary Artery Disease, Hx DVT, Hx Heart Attack, Hx Pulmonary Embolism Pulmonary Medical History: Reports: Hx Asthma, Hx Pneumonia Denies: Hx COPD, Hx Sleep Apnea Neurological Medical History: Denies: Hx Seizures Endocrine Medical History: Reports: Hx Diabetes Mellitus Type 2. Denies: Hx Diabetes Mellitus Type 1, Hx Hyperthyroidism, Hx Hypothyroidism Renal/ Medical History: Reports: Hx Kidney Stones - lithrotripsy. Denies: Hx Peritoneal Dialysis GI Medical History: Reports: Hx Diverticulitis, Hx Hiatal Hernia. Denies: Hx Cirrhosis, Hx Hepatitis Psychiatric Medical History: Denies: Hx Depression Infectious Medical History: Denies: Hx Hepatitis Past Surgical History: Reports: Hx Cardiac Catheterization - cath 2; second in 2013; no stent or angioplasty, Hx Tonsillectomy, Hx Tubal Ligation, Other - Lithotripsy 7. Denies: Hx Coronary Stent - cath 2; second in 2013; no stent or angioplasty - Immunizations Hx Diphtheria, Pertussis, Tetanus Vaccination: Yes History of Influenza Vaccine for 03/2017 - 08/2017 Season: Unknown Physical Exam - Vital signs Vitals: Temp Pulse Resp BP Pulse Ox 100.4 F 109 H 20 147/97 H 98 02/22/18 16:12 02/22/18 16:12 02/22/18 16:12 02/22/18 16:12 02/22/18 16:12 Course - Vital Signs Vital signs: Temp Pulse Resp BP Pulse Ox 100.4 F 109 H 20 147/97 H 98 02/22/18 16:12 02/22/18 16:12 02/22/18 16:12 02/22/18 16:12 02/22/18 16:12 Doctor's Discharge - Discharge Referrals: JIMY STONER MD [Primary Care Provider] - Follow up as needed
[2018-02-22 17:46] LABS: ABSOLUTE LYMPHOCYTES (AUTO) 1.1 10^3/uL (0.5-4.7); ABSOLUTE MONOCYTES (AUTO) 0.7 10^3/uL (0.1-1.4); BASOPHILS % (AUTO) 0.3 % (0-2); HEMATOCRIT 37.8 % (36.0-47.0); LYMPHOCYTES % (AUTO) 9.6 % (13-45); MEAN CORPUSCULAR HEMOGLOBIN 26.6 pg (27.0-33.4); MEAN CORPUSCULAR HGB CONC 34.3 g/dL (32.0-36.0); MEAN CORPUSCULAR VOLUME 78 fl (80-97); PLATELET COUNT 246 10^3/uL (150-450); RED BLOOD COUNT 4.87 10^6/uL (3.72-5.28); RED CELL DISTRIBUTION WIDTH 13.9 % (11.5-14.0); SEGMENTED NEUTROPHILS % (AUTO) 84.1 % (42-78); TOTAL CELLS COUNTED % (AUTO) 100 %; WHITE BLOOD COUNT 11.9 10^3/uL (4.0-10.5)
[2018-02-22 17:51] LABS: APPEARANCE,URINE SLIGHTLY-CLOUDY; BILIRUBIN,URINE NEGATIVE (NEGATIVE); COLOR,URINE YELLOW; GLUCOSE, URINE NEGATIVE (NEGATIVE); KETONES,URINE 20 mg/dL (NEGATIVE); LEUKOCYTE ESTERASE,URINE NEGATIVE (NEGATIVE); NITRITE,URINE NEGATIVE (NEGATIVE); PROTEIN,URINE 100 mg/dL (NEGATIVE); URINE SPECIFIC GRAVITY 1.023; UROBILINOGEN,URINE NEGATIVE mg/dL (<2.0)
[2018-02-22 18:11] LABS: ALANINE AMINOTRANSFERASE 20 U/L (9-52); ALBUMIN 4.3 g/dL (3.5-5.0); ALKALINE PHOSPHATASE 83 U/L (38-126); ANION GAP 15 (5-19); ASPARTATE AMINO TRANSFERASE 22 U/L (14-36); BILIRUBIN,DIRECT 0.4 mg/dL (0.0-0.4); BILIRUBIN,TOTAL 1.2 mg/dL (0.2-1.3); BLOOD UREA NITROGEN 9 mg/dL (7-20); CALCIUM 8.8 mg/dL (8.4-10.2); CARBON DIOXIDE 29 mmol/L (22-30); CHLORIDE 89 mmol/L (98-107); GLUCOSE 115 mg/dL (75-110); LIPASE 33.4 U/L (23-300); SODIUM 132.8 mmol/L (137-145); TOTAL PROTEIN 7.7 g/dL (6.3-8.2)
[2018-02-22 18:15] LABS: POTASSIUM 2.6 mmol/L (3.6-5.0)
[2018-02-22] MEDS ORDERED: POTASSIUM CHLORIDE 10 MEQ CAPSULE.ER PO ONE (18:17)
--- NOTE | 2018-02-22 19:03 | ER Document Report ---
ED General - General Chief Complaint: Abdominal Pain Stated Complaint: DIARRHEA/VOMITING Time Seen by Provider: 02/22/18 16:43 Mode of Arrival: Ambulatory Information source: Patient, Relative, [facility] Records Notes: 42-year-old female with hypertension, hyperlipidemia, type 2 diabetes, diverticulosis with history of diverticulitis presents with 2 days of left lower quadrant abdominal pain. Patient states pain has progressively worsened. She describes it as a stabbing constant pain. Patient has had associated fever, nausea, vomiting, diarrhea. Patient states that she has been unable to tolerate any food or liquids. She states that she has had over 5 episodes of vomiting and diarrhea daily since the pain started. She does state that this feels similar to when she had diverticulitis. she states her last flare was approximately 1 year ago. She denies any sick contacts, recent antibiotic use, recent travel. TRAVEL OUTSIDE OF THE [place] IN LAST 30 DAYS: No - HPI Onset: Other Onset/Duration: Gradual, Persistent, Worse Quality of pain: Stabbing Severity: Moderate Associated symptoms: Diarrhea, Fever, Nausea, Vomiting Exacerbated by: Movement, Food Relieved by: Denies Similar symptoms previously: Yes Recently seen / treated by doctor: No - Related Data Allergies/Adverse Reactions: levofloxacin [From Levaquin] Allergy (Verified 02/22/18 16:09) Past Medical History - General Information source: Patient, [facility] Records - Social History Smoking Status: Never Smoker Chew tobacco use (# tins/day): No Frequency of alcohol use: Rare Drug Abuse: None Lives with: Spouse/Significant other Family History: Reviewed & Not Pertinent Patient has suicidal ideation: No Patient has homicidal ideation: No - Past Medical History Cardiac Medical History: Reports: Hx Hypercholesterolemia - History of same; taken off medications by provider, Hx Hypertension Denies: Hx Atrial Fibrillation, Hx Congestive Heart Failure, Hx Coronary Artery Disease, Hx DVT, Hx Heart Attack, Hx Pulmonary Embolism Pulmonary Medical History: Reports: Hx Asthma, Hx Pneumonia Denies: Hx COPD, Hx Sleep Apnea Neurological Medical History: Denies: Hx Seizures Endocrine Medical History: Reports: Hx Diabetes Mellitus Type 2. Denies: Hx Diabetes Mellitus Type 1, Hx Hyperthyroidism, Hx Hypothyroidism Renal/ Medical History: Reports: Hx Kidney Stones - lithrotripsy. Denies: Hx Peritoneal Dialysis GI Medical History: Reports: Hx Diverticulitis, Hx Hiatal Hernia. Denies: Hx Cirrhosis, Hx Hepatitis Psychiatric Medical History: Denies: Hx Depression Infectious Medical History: Denies: Hx Hepatitis Past Surgical History: Reports: Hx Cardiac Catheterization - cath 2; second in 2013; no stent or angioplasty, Hx Tonsillectomy, Hx Tubal Ligation, Other - Lithotripsy 7. Denies: Hx Coronary Stent - cath 2; second in 2013; no stent or angioplasty - Immunizations Hx Diphtheria, Pertussis, Tetanus Vaccination: Yes Review of Systems - Review of Systems Notes: REVIEW OF SYSTEMS: CONSTITUTIONAL : Denies fever, chills, or sweats. Denies recent illness. Denies weight loss, recent hospitalizations. EENT: Denies visual changes, eye pain. Denies nasal or sinus congestion or discharge. Denies sore throat, oral lesions, difficulty swallowing. CARDIOVASCULAR: Denies chest pain. Denies palpitations. Denies lower extremity edema. RESPIRATORY: Denies cough, cold, or chest congestion. Denies shortness of breath, wheezing. GASTROINTESTINAL: Denies black, tarry stools. Denies constipation. GENITOURINARY: Denies difficulty urinating, painful urination, frequency, blood in urine, or vaginal discharge. MUSCULOSKELETAL: Denies back or neck pain or stiffness. Denies joint pain or swelling. SKIN: Denies rash, lesions or sores. HEMATOLOGIC : Denies easy bruising or bleeding. LYMPHATIC: Denies swollen glands. NEUROLOGICAL: Denies confusion or altered mental status. Denies passing out or loss of consciousness. Denies dizziness or lightheadedness. Denies headache. Denies weakness or paralysis. Denies problems difficulty with ambulation, slurred speech. Denies sensory loss, numbness, or tingling. Denies seizures. PSYCHIATRIC: Denies anxiety or stress. Denies depression, suicidal ideation, or homicidal ideation. Denies visual or auditory hallucinations. Physical Exam - Vital signs Vitals: Temp Pulse Resp BP Pulse Ox 100.4 F 109 H 20 147/97 H 98 02/22/18 16:12 02/22/18 16:12 02/22/18 16:12 02/22/18 16:12 02/22/18 16:12 Interpretation: Hypertensive, Tachycardic, Febrile - Notes Notes: PHYSICAL EXAMINATION: GENERAL: ill-appearing, well-nourished and in mild distress. HEAD: Atraumatic, normocephalic. EYES: Pupils equal round and reactive to light, extraocular movements intact, conjunctiva are normal. ENT: Nares patent, oropharynx clear without exudates. Moist mucous membranes. NECK: Normal range of motion, supple without lymphadenopathy LUNGS: Breath sounds clear to auscultation bilaterally and equal. No wheezes rales or rhonchi. HEART: Tachycardic, regular rhythm without murmurs ABDOMEN: Tenderness with palpation to the left lower quadrant. No guarding, no rebound. No masses appreciated. Female : deferred Musculoskeletal: Normal range of motion, no pitting or edema. No cyanosis. NEUROLOGICAL: Cranial nerves grossly intact. Normal speech, normal gait. Normal sensory, motor exams PSYCH: Normal mood, normal affect. SKIN: Warm, Dry, normal turgor, no rashes or lesions noted. Course - Re-evaluation Re-evalutation: Laboratory 02/22/18 02/22/18 02/22/18 17:00 17:00 17:00 WBC 11.9 H RBC 4.87 Hgb 13.0 Hct 37.8 MCV 78 L MCH 26.6 L MCHC 34.3 RDW 13.9 Plt Count 246 Seg Neutrophils % 84.1 H Lymphocytes % 9.6 L Monocytes % 6.0 Eosinophils % 0.0 Basophils % 0.3 Absolute Neutrophils 10.0 H Absolute Lymphocytes 1.1 Absolute Monocytes 0.7 Absolute Eosinophils 0.0 Absolute Basophils 0.0 Sodium 132.8 L Potassium 2.6 L* Chloride 89 L Carbon Dioxide 29 Anion Gap 15 BUN 9 Creatinine 0.67 Est GFR ( Amer) > 60 Est GFR (Non-Af Amer) > 60 Glucose 115 H Lactic Acid Calcium 8.8 Total Bilirubin 1.2 Direct Bilirubin 0.4 Neonat Total Bilirubin Not Reportable Neonat Direct Bilirubin Not Reportable Neonat Indirect Bili Not Reportable AST 22 ALT 20 Alkaline Phosphatase 83 Total Protein 7.7 Albumin 4.3 Lipase 33.4 Urine Color YELLOW Urine Appearance SLIGHTLY-CLOUDY Urine pH 5.0 Ur Specific Deloit 1.023 Urine Protein 100 H Urine Glucose (UA) NEGATIVE Urine Ketones 20 H Urine Blood SMALL H Urine Nitrite NEGATIVE Urine Bilirubin NEGATIVE Urine Urobilinogen NEGATIVE Ur Leukocyte Esterase NEGATIVE Urine WBC (Auto) 2 Urine RBC (Auto) 4 Squamous Epi Cells Auto 2 Urine Mucus (Auto) FEW Urine Ascorbic Acid NEGATIVE Urine Opiates Screen Urine Methadone Screen Ur Barbiturates Screen Ur Phencyclidine Scrn Ur Amphetamines Screen U Benzodiazepines Scrn Urine Cocaine Screen U Marijuana (THC) Screen 02/22/18 02/22/18 17:00 17:00 WBC RBC Hgb Hct MCV MCH MCHC RDW Plt Count Seg Neutrophils % Lymphocytes % Monocytes % Eosinophils % Basophils % Absolute Neutrophils Absolute Lymphocytes Absolute Monocytes Absolute Eosinophils Absolute Basophils Sodium Potassium Chloride Carbon Dioxide Anion Gap BUN Creatinine Est GFR ( Amer) Est GFR (Non-Af Amer) Glucose Lactic Acid 1.1 Calcium Total Bilirubin Direct Bilirubin Neonat Total Bilirubin Neonat Direct Bilirubin Neonat Indirect Bili AST ALT Alkaline Phosphatase Total Protein Albumin Lipase Urine Color Urine Appearance Urine pH Ur Specific Deloit Urine Protein Urine Glucose (UA) Urine Ketones Urine Blood Urine Nitrite Urine Bilirubin Urine Urobilinogen Ur Leukocyte Esterase Urine WBC (Auto) Urine RBC (Auto) Squamous Epi Cells Auto Urine Mucus (Auto) Urine Ascorbic Acid Urine Opiates Screen NEGATIVE Urine Methadone Screen NEGATIVE Ur Barbiturates Screen NEGATIVE Ur Phencyclidine Scrn NEGATIVE Ur Amphetamines Screen NEGATIVE U Benzodiazepines Scrn NEGATIVE Urine Cocaine Screen NEGATIVE U Marijuana (THC) Screen NEGATIVE Abdomen/Pelvis CT 02/22/18 16:43 IMPRESSION: Moderate wall thickening in the cecum with adjacent mild inflammatory changes. No free fluid. 02/22/18 22:12 42-year-old female with hypertension, hyperlipidemia, type 2 diabetes, diverticulosis with history of diverticulitis presents with 2 days of left lower quadrant abdominal pain. Patient states pain has progressively worsened. She describes it as a stabbing constant pain. Patient has had associated fever, nausea, vomiting, diarrhea. Patient states that she has been unable to tolerate any food or liquids. She states that she has had over 5 episodes of vomiting and diarrhea daily since the pain started. She does state that this feels similar to when she had diverticulitis. she states her last flare was approximately 1 year ago. She denies any sick contacts, recent antibiotic use, recent travel. Upon arrival patient is tachycardic, febrile. Patient appears ill but not toxic. She does appear mildly dehydrated. She did receive fentanyl , Zofran, Cipro, Flagyl from provider in triage. 02/22/18 22:13 Patient was reevaluated and is still complaining of significant pain, nausea. She has had multiple episodes of diarrhea during her ED course. Patient found to have a potassium of 2.6. And markedly low magnesium. Dilaudid and Reglan were given for persistent pain.. Potassium replenishment started. CBC with mild leukocytosis, CMP shows potassium 2.6, glucose of 115. Urinalysis within normal limits. Because of the patient's persistent nausea, vomiting, abdominal pain I am concerned that we will not be able to replenish her potassium orally. Magnesium pending. EKG shows new T-wave inversion in the lateral leads but when questioned patient denies any chest pain. Patient has been accepted by the hospitalist for admission. 02/23/18 01:13 - Vital Signs Vital signs: Temp Pulse Resp BP Pulse Ox 101.0 F H 86 16 134/71 H 93 02/23/18 00:10 02/23/18 00:10 02/23/18 00:10 02/23/18 00:10 02/23/18 00:10 - Laboratory Result Diagrams: 02/22/18 17:00 02/22/18 17:00 Laboratory results interpreted by me: 02/22/18 02/22/18 02/22/18 17:00 17:00 17:00 WBC 11.9 H MCV 78 L MCH 26.6 L Seg Neutrophils % 84.1 H Lymphocytes % 9.6 L Absolute Neutrophils 10.0 H Sodium 132.8 L Potassium 2.6 L* Chloride 89 L Glucose 115 H Magnesium Urine Protein 100 H Urine Ketones 20 H Urine Blood SMALL H 02/22/18 17:00 WBC MCV MCH Seg Neutrophils % Lymphocytes % Absolute Neutrophils Sodium Potassium Chloride Glucose Magnesium 0.9 L* Urine Protein Urine Ketones Urine Blood - Diagnostic Test Radiology reviewed: Image reviewed, Reports reviewed - EKG Interpretation by Me EKG shows normal: Sinus rhythm Rate: Tachycardia Rhythm: NSR When compared to previous EKG there are: Changes noted - t wave inversionV4-V6 Discharge - Discharge Clinical Impression: Hypokalemia, Diabetes mellitus type 2 in obese, Hypomagnesemia, Acute electrocardiogram changes Abdominal pain Qualifiers: Abdominal location: left lower quadrant Qualified Code(s): R10.32 - Left lower quadrant pain Nausea & vomiting Qualifiers: Vomiting type: unspecified Vomiting Intractability: intractable Qualified Code( s): R11.2 - Nausea with vomiting, unspecified Diarrhea Qualifiers: Diarrhea type: unspecified type Qualified Code(s): R19.7 - Diarrhea, unspecified HTN (hypertension) Qualifiers: Hypertension type: unspecified Qualified Code(s): I10 - Essential (primary) hypertension Condition: Good Disposition: ADMITTED INPATIENT Admitting Provider: Hospitalist Unit Admitted: Medical Floor
--- NOTE | 2018-02-22 20:20 | RADIOLOGY REPORT (SQ) ---
EXAM DESCRIPTION: CT ABD/PELVIS WITH IV ORAL COMPLETED DATE/TIME: 02/22/2018 7:59 pm REASON FOR STUDY: Diverticulitis rule out diverticular abscess COMPARISON: 03/16/2017 TECHNIQUE: CT scan of the abdomen and pelvis performed using helical scanning technique with dynamic intravenous contrast injection. No oral contrast. Images reviewed with lung, soft tissue, and bone w indows. Reconstructed coronal and sagittal MPR images reviewed. Delayed images for evaluation of the urinary system also acquired. All images stored on PACS. All CT scanners at this facility use dose modulation, iterative reconstruction, and/or weight based d osing when appropriate to reduce radiation dose to as low as reasonably achievable (ALARA). [facility]: Dose Right [facility]: CareDose [facility]: Dose Right [facility]: Teradose 4D [facility]: Giftiki CONTRAST TYPE AND DOSE: contrast/concentration: Isovue 350.00 mg/ml; Total Contrast Delivered: 100.0 ml; Total Saline Delivered: 50.0 ml RENAL FUNCTION: GFR > 60. RADIATION DOSE: CT Rad equipment meets quality standard of care and radiation dose reduction techniq ues were employed. CTDIvol: 19.6 - 20.6 mGy. DLP: 2144 mGy-cm.. LIMITATIONS: None. FINDINGS: LOWER CHEST: No significant findings. LIVER: Normal size. No enhancing masses. No dilated ducts. SPLEEN: Normal size. No focal lesions. PANCREAS: No masses identified. No significant calcifications. No adjacent inflammation or peripancre atic fluid collections. Pancreatic duct not dilated. GALLBLADDER: No calcified stones. No inflammatory changes to suggest cholecystitis. ADRENAL GLANDS: No significant masses. RIGHT KIDNEY AND URETER: No cysts identified. No solid masses identified. No calcified stones. No hyd ronephrosis or hydroureter. LEFT KIDNEY AND URETER: No cysts identified. No solid masses identified. No calcified stones. No hydr onephrosis or hydroureter. AORTA AND VESSELS: No aneurysm. No dissection. Renal arteries, SMA, celiac without significant stenos is. RETROPERITONEUM: No bulky retroperitoneal adenopathy. BOWEL AND PERITONEAL CAVITY: Moderate wall thickening in the cecum with adjacent mild inflammatory ch anges. No free fluid. APPENDIX: Normal. PELVIS: No mass. No free fluid. Unremarkable bladder. ABDOMINAL WALL: No masses. No hernias. BONES: No acute findings. OTHER: No other significant finding. IMPRESSION: Moderate wall thickening in the cecum with adjacent mild inflammatory changes. No free f luid. TECHNICAL DOCUMENTATION: JOB ID: [id number] Quality ID # [id number]: Final reports with documentation of one or more dose reduction techniques (e.g., Au tomated exposure control, adjustment of the mA and/or kV according to patient size, use of iterative reconstruction technique) 2010 [employer]- All Rights Reserved Reading location - IP/workstation name: [email or web address]
[2018-02-22] MEDS: POTASSI CL 20 MEQ/50 ML RIDER 20 MEQ/50 ML RTUPB IV SCH ×2 (20:24→22:55)
[2018-02-22] MEDS ORDERED: HYDROMORPHONE HCL INJ/PF 2 MG/ML AMPULE IV ONE (20:34)
[2018-02-22] MEDS: CIPROFLOXACIN 400 MG/D5W RTU 400 MG/200 ML RTUPB IV SCH (20:51)
[2018-02-22] MEDS ORDERED: METOCLOPRAMIDE HCL INJ/PF 10 MG/2 ML SDV IV ONE (21:04)
[2018-02-22] MEDS ORDERED: PROMETHAZINE HCL 25 MG TABLET PO PRN (21:28)
[2018-02-22] MEDS ORDERED: NORMAL SALINE 1000 ML 1,000 ML IV SCH (21:30)
[2018-02-22 22:00] LABS: URINE AMPHETAMINES SCREEN NEGATIVE; URINE BARBITURATES SCREEN NEGATIVE; URINE BENZODIAZEPINES SCREEN NEGATIVE; URINE COCAINE SCREEN NEGATIVE; URINE MARIJUANA (THC) SCREEN NEGATIVE; URINE METHADONE SCREEN NEGATIVE; URINE PHENCYCLIDINE SCREEN NEGATIVE
[2018-02-22 22:18] LABS: CREATINE KINASE MB 0.36 ng/mL (<4.55)
[2018-02-22 22:20] LABS: CREATINE KINASE 76 U/L (30-135)
[2018-02-22 22:21] LABS: TROPONIN I < 0.012 ng/mL
[2018-02-22] MEDS: METRONIDAZOLE 500 MG TABLET PO SCH (22:49)
[2018-02-22] MEDS: METOPROLOL TARTRATE 25 MG TABLET PO SCH (22:50)
[2018-02-22] MEDS: HEPARIN SOD (PORCINE) 5,000 UNIT/ML 1 ML SYRINGE SUBCUT SCH (22:51)
[2018-02-23] MEDS: CIPROFLOXACIN 400 MG/D5W RTU 400 MG/200 ML RTUPB IV SCH ×3 (00:24→21:53)
[2018-02-23] MEDS: MAGNESIUM SULFATE/D5W 1 GM/100 ML RTUPB IV SCH ×2 (00:42→03:54)
[2018-02-23] MEDS: KETOROLAC TROMETHAMINE INJ/PF 30 MG/1 ML SDV IV PRN ×3 (01:12→19:02)
[2018-02-23] MEDS: POTASSI CL 20 MEQ/50 ML RIDER 20 MEQ/50 ML RTUPB IV SCH ×2 (03:19→19:21)
[2018-02-23] MEDS: METRONIDAZOLE 500 MG TABLET PO SCH ×5 (03:33→22:41)
[2018-02-23] MEDS ORDERED: MAGNESIUM SULFATE/D5W 1 GM/100 ML RTUPB IV SCH (04:00)
--- NOTE | 2018-02-23 05:35 | PDOC H&P ---
History of Present Illness Admission Date/PCP: 02/22/18 21:31 JIMY STONER Patient complains of: 48 hours of nausea vomiting diarrhea History of Present Illness: CARLOS EAGLE is a 42 year old female with a past medical history of morbid obesity and diverticulitis. Patient presents with 48 hours of nausea vomiting diarrhea. In the emergency room she is found to have fever, potassium 2.6, magnesium 0.9, leukocytosis and a CT without contrast showing cecal thickening. She receives ciprofloxacin, Flagyl and IV fluids and referred to the hospitalist for admission. She denies recent antibiotic use, suspect meals and is otherwise felt well Past Medical History Cardiac Medical History: Reports: Hyperlipidema - History of same; taken off medications by provider, Hypertension Denies: Atrial Fibrillation, Congestive Heart Failure, Coronary Artery Disease, DVT, Myocardial Infarction, Pulmonary Embolism Pulmonary Medical History: Reports: Asthma, Pneumonia Denies: Chronic Obstructive Pulmonary Disease (COPD), Sleep Apnea Neurological Medical History: Denies: Seizures Endocrine Medical History: Reports: Diabetes Mellitus Type 2 Denies: Diabetes Mellitus Type 1, Hyperthyroidism, Hypothyroidism GI Medical History: Reports: Diverticulitis, Hiatal Hernia Denies: Cirrhosis, Hepatitis Psychiatric Medical History: Denies: Depression Past Surgical History Past Surgical History: Reports: Cardiac Catheterization - cath 2; second in 2013; no stent or angioplasty, Tonsillectomy, Tubal Ligation, Other - Lithotripsy 7 Denies: Coronary Stent - cath 2; second in 2013; no stent or angioplasty Social History Information Source: Patient Lives with: Spouse/Significant other Smoking Status: Never Smoker Frequency of Alcohol Use: None Drugs: None Hx Prescription Drug Abuse: No - Advance Directive Resuscitation Status: Full Code Family History Family History: CAD Parental Family History Reviewed: Yes Children Family History Reviewed: Yes Sibling(s) Family History Reviewed.: Yes Medication/Allergy Home Medications: Aspirin [Aspirin EC] 81 mg PO DAILY 03/16/17 Calcium Carbonate [Antacid] 200 mg PO ASDIR PRN 03/16/17 Losartan/Hydrochlorothiazide [Losartan-Hctz 100-25 mg Tab] 1 tab PO QAM Metformin HCl [Glucophage 500 mg Tablet] 500 mg PO BIDACBS 03/16/17 Metoprolol Tartrate [Lopressor 25 mg Tablet] 25 mg PO QHS 03/16/17 Omeprazole 20 mg PO DAILY 03/16/17 Metronidazole [Flagyl 500 mg Tablet] 500 mg PO Q8 #42 tablet 03/18/17 Oxycodone HCl/Acetaminophen [Percocet 5-325 mg Tablet] 1 tab PO Q6HP PRN #10 tablet 03/18/17 Sulfamethoxazole/Trimethoprim [Septra-Ds 800-160 mg Tablet] 1 tab PO BID #20 tablet 03/18/17 Allergies/Adverse Reactions: levofloxacin [From Levaquin] Allergy (Verified 02/22/18 16:09) Review of Systems Constitutional: ABSENT: chills, fever(s), headache(s), weight gain, weight loss Eyes: ABSENT: visual disturbances Ears: ABSENT: hearing changes Cardiovascular: ABSENT: chest pain, dyspnea on exertion, edema, orthropnea, palpitations Respiratory: ABSENT: cough, hemoptysis Gastrointestinal: ABSENT: abdominal pain, constipation, diarrhea, hematemesis, hematochezia, nausea, vomiting Genitourinary: ABSENT: dysuria, hematuria Musculoskeletal: ABSENT: joint swelling Integumentary: ABSENT: rash, wounds Neurological: ABSENT: abnormal gait, abnormal speech, confusion, dizziness, focal weakness, syncope Psychiatric: ABSENT: anxiety, depression, homidical ideation, suicidal ideation Endocrine: ABSENT: cold intolerance, heat intolerance, polydipsia, polyuria Hematologic/Lymphatic: ABSENT: easy bleeding, easy bruising Physical Exam Vital Signs: Temp Pulse Resp BP Pulse Ox 99.3 F 86 16 134/71 H 93 02/23/18 04:17 02/23/18 00:10 02/23/18 00:10 02/23/18 00:10 02/23/18 00:10 Intake & Output 02/21/18 02/22/18 02/23/18 11:59 11:59 11:59 Intake Total 1500 Balance 1500 Weight 105.5 kg General appearance: PRESENT: cooperative, mild distress, well-developed, well- nourished. ABSENT: disheveled Head exam: PRESENT: atraumatic, normocephalic Eye exam: PRESENT: conjunctiva pink, EOMI, PERRLA. ABSENT: scleral icterus Ear exam: PRESENT: normal external ear exam Mouth exam: PRESENT: moist, tongue midline Neck exam: ABSENT: carotid bruit, JVD, lymphadenopathy, thyromegaly Respiratory exam: PRESENT: clear to auscultation sophia. ABSENT: rales, rhonchi, wheezes Cardiovascular exam: PRESENT: RRR. ABSENT: diastolic murmur, rubs, systolic murmur Pulses: PRESENT: normal dorsalis pedis pul Vascular exam: PRESENT: normal capillary refill GI/Abdominal exam: PRESENT: hyperactive bowel sounds, normal bowel sounds, soft , tenderness. ABSENT: distended, guarding, mass, organolmegaly, rebound Rectal exam: PRESENT: deferred Extremities exam: PRESENT: full ROM. ABSENT: calf tenderness, clubbing, pedal edema Neurological exam: PRESENT: alert, awake, oriented to person, oriented to place , oriented to time, oriented to situation, CN II-XII grossly intact. ABSENT: motor sensory deficit Psychiatric exam: PRESENT: appropriate affect, normal mood. ABSENT: homicidal ideation, suicidal ideation Skin exam: PRESENT: dry, intact, warm. ABSENT: cyanosis, rash Results Laboratory Results: 02/23/18 00:50 Stool for White Cells MANY H Impressions: Abdomen/Pelvis CT 02/22/18 16:43 IMPRESSION: Moderate wall thickening in the cecum with adjacent mild inflammatory changes. No free fluid. Assessment & Plan - Diagnosis (1) Diverticulitis Is this a current diagnosis for this admission?: Yes Plan: Medical floor admission, symptomatic management, p.o. Flagyl, IV Cipro, bowel rest. Follow-up CBC and blood culture (2) Hypokalemia Is this a current diagnosis for this admission?: Yes Plan: Secondary to #1 repletion and reevaluation of chemistry (3) Hypomagnesemia Is this a current diagnosis for this admission?: Yes Plan: Secondary to #1, repletion and reevaluation (4) Nausea & vomiting Qualifiers: Vomiting type: unspecified Vomiting Intractability: intractable Qualified Code(s): R11.2 - Nausea with vomiting, unspecified Is this a current diagnosis for this admission?: Yes Plan: Secondary to #1, symptomatic management (5) Diabetes mellitus type 2 in obese Is this a current diagnosis for this admission?: Yes Plan: Outpatient regiment with Humalog sliding scale - Time Time Spent: 30 to 50 Minutes
--- NOTE | 2018-02-23 05:42 | EKG REPORT ---
SEVERITY:- ABNORMAL ECG - SINUS TACHYCARDIA REPOL ABNRM SUGGESTS ISCHEMIA, ANT-LAT LEADS , NEW COMPARED TO 10/28/15 BORDERLINE PROLONGED QT INTERVAL : Confirmed by: Donny Parra MD 23-Feb-2018 05:42:03
[2018-02-23] MEDS: HEPARIN SOD (PORCINE) 5,000 UNIT/ML 1 ML SYRINGE SUBCUT SCH ×3 (06:08→21:53)
[2018-02-23] MEDS: HYDROMORPHONE HCL INJ/PF 2 MG/ML AMPULE SUBCUT PRN (06:17)
[2018-02-23 06:40] LABS: ABSOLUTE LYMPHOCYTES (AUTO) 1.5 10^3/uL (0.5-4.7); ABSOLUTE MONOCYTES (AUTO) 0.7 10^3/uL (0.1-1.4); ABSOLUTE NEUT (AUTO) 7.2 10^3/uL (1.7-8.2); BASOPHILS % (AUTO) 0.2 % (0-2); EOSINOPHILS % (AUTO) 0.1 % (0-6); HEMATOCRIT 34.5 % (36.0-47.0); HEMOGLOBIN 12.1 g/dL (12.0-15.5); LYMPHOCYTES % (AUTO) 15.8 % (13-45); MEAN CORPUSCULAR HEMOGLOBIN 27.1 pg (27.0-33.4); MEAN CORPUSCULAR VOLUME 77 fl (80-97); MONOCYTES % (AUTO) 7.6 % (3-13); PLATELET COUNT 203 10^3/uL (150-450); RED BLOOD COUNT 4.47 10^6/uL (3.72-5.28); SEGMENTED NEUTROPHILS % (AUTO) 76.3 % (42-78); TOTAL CELLS COUNTED % (AUTO) 100 %; WHITE BLOOD COUNT 9.4 10^3/uL (4.0-10.5)
[2018-02-23 07:01] LABS: ANION GAP 12 (5-19); BLOOD UREA NITROGEN 8 mg/dL (7-20); CALCIUM 7.8 mg/dL (8.4-10.2); CARBON DIOXIDE 25 mmol/L (22-30); CHLORIDE 96 mmol/L (98-107); GLUCOSE 125 mg/dL (75-110); POTASSIUM 3.3 mmol/L (3.6-5.0); SODIUM 133.1 mmol/L (137-145)
[2018-02-23] MEDS ORDERED: POTASSIUM CHLORIDE 20 MEQ/50 ML RTU IV ONE (10:00)
[2018-02-23] MEDS: ASPIRIN 81 MG TABLET, ENT COATED PO SCH (10:11)
--- NOTE | 2018-02-23 11:32 | PDOC PROGRESS REPORT ---
Subjective Progress Note for:: 02/23/18 Subjective:: No adverse events overnight. No new complaints. Vital signs been stable. She says she still has a little bit of abdominal pain but it substantially better than it was. No nausea. She is wanting to know if she can eat. Reason For Visit: GE INTRACTABLE NAUSEA VOMITING DIABETES Physical Exam Vital Signs: Temp Pulse Resp BP Pulse Ox 101.0 F H 93 18 124/64 97 02/23/18 07:11 02/23/18 07:11 02/23/18 07:11 02/23/18 07:11 02/23/18 07:11 Intake & Output 02/22/18 02/23/18 02/24/18 06:59 06:59 06:59 Intake Total 1500 Balance 1500 Weight 105.5 kg General appearance: PRESENT: cooperative, mild distress, well-developed, well- nourished. ABSENT: disheveled Respiratory exam: PRESENT: clear to auscultation sophia. ABSENT: rales, rhonchi, wheezes Cardiovascular exam: PRESENT: RRR. ABSENT: diastolic murmur, rubs, systolic murmur Pulses: PRESENT: normal dorsalis pedis pul Vascular exam: PRESENT: normal capillary refill GI/Abdominal exam: PRESENT: Normal bowel sounds, soft, mild tenderness. ABSENT : distended, guarding, rebound Extremities exam: PRESENT: full ROM. ABSENT: calf tenderness, clubbing, pedal edema Neurological exam: PRESENT: alert, awake, oriented to person, oriented to place , oriented to time, oriented to situation Results Laboratory Results: 02/23/18 06:06 02/23/18 06:06 02/23/18 02/23/18 02/23/18 00:50 06:06 06:06 WBC 9.4 RBC 4.47 Hgb 12.1 Hct 34.5 L MCV 77 L MCH 27.1 MCHC 35.0 RDW 14.0 Plt Count 203 Seg Neutrophils % 76.3 Lymphocytes % 15.8 Monocytes % 7.6 Eosinophils % 0.1 Basophils % 0.2 Absolute Neutrophils 7.2 Absolute Lymphocytes 1.5 Absolute Monocytes 0.7 Absolute Eosinophils 0.0 Absolute Basophils 0.0 Sodium 133.1 L Potassium 3.3 L Chloride 96 L Carbon Dioxide 25 Anion Gap 12 BUN 8 Creatinine 0.74 Est GFR ( Amer) > 60 Est GFR (Non-Af Amer) > 60 Glucose 125 H Calcium 7.8 L Magnesium Stool for White Cells MANY H 02/23/18 06:06 WBC RBC Hgb Hct MCV MCH MCHC RDW Plt Count Seg Neutrophils % Lymphocytes % Monocytes % Eosinophils % Basophils % Absolute Neutrophils Absolute Lymphocytes Absolute Monocytes Absolute Eosinophils Absolute Basophils Sodium Potassium Chloride Carbon Dioxide Anion Gap BUN Creatinine Est GFR ( Amer) Est GFR (Non-Af Amer) Glucose Calcium Magnesium 1.8 Stool for White Cells Impressions: Abdomen/Pelvis CT 02/22/18 16:43 IMPRESSION: Moderate wall thickening in the cecum with adjacent mild inflammatory changes. No free fluid. Assessment & Plan - Diagnosis (1) Diverticulitis Is this a current diagnosis for this admission?: Yes Plan: Improving on Cipro and Flagyl. (2) Hypomagnesemia Is this a current diagnosis for this admission?: Yes Plan: Resolved (3) Hypokalemia Is this a current diagnosis for this admission?: Yes Plan: Nearly resolved after replacement (4) Nausea & vomiting Qualifiers: Vomiting type: unspecified Vomiting Intractability: intractable Qualified Code(s): R11.2 - Nausea with vomiting, unspecified Is this a current diagnosis for this admission?: Yes Plan: Resolved - Time Time Spent with patient: 25-34 minutes
[2018-02-23] MEDS: METOPROLOL TARTRATE 25 MG TABLET PO SCH (21:53)
[2018-02-24] MEDS: HYDROMORPHONE HCL INJ/PF 2 MG/ML AMPULE SUBCUT PRN ×2 (00:14→20:19)
[2018-02-24] MEDS: METRONIDAZOLE 500 MG TABLET PO SCH ×4 (02:35→20:26)
[2018-02-24] MEDS: HEPARIN SOD (PORCINE) 5,000 UNIT/ML 1 ML SYRINGE SUBCUT SCH ×3 (06:14→21:55)
[2018-02-24] MEDS: CIPROFLOXACIN 400 MG/D5W RTU 400 MG/200 ML RTUPB IV SCH ×2 (10:05→21:55)
[2018-02-24] MEDS: ASPIRIN 81 MG TABLET, ENT COATED PO SCH (10:05)
[2018-02-24 10:15] LABS: ANION GAP 10 (5-19); BLOOD UREA NITROGEN 5 mg/dL (7-20); CALCIUM 7.8 mg/dL (8.4-10.2); CARBON DIOXIDE 28 mmol/L (22-30); CHLORIDE 100 mmol/L (98-107); GLUCOSE 159 mg/dL (75-110); POTASSIUM 3.2 mmol/L (3.6-5.0); SODIUM 137.7 mmol/L (137-145)
[2018-02-24] MEDS: KETOROLAC TROMETHAMINE INJ/PF 30 MG/1 ML SDV IV PRN (12:39)
--- NOTE | 2018-02-24 15:12 | PDOC PROGRESS REPORT ---
Subjective Progress Note for:: 02/24/18 Subjective:: No adverse events overnight. No new complaints. She has had abdominal pains little bit better. She still having some diarrhea. She says she has been having diarrhea the whole time. Reason For Visit: GE INTRACTABLE NAUSEA VOMITING DIABETES Physical Exam Vital Signs: Temp Pulse Resp BP Pulse Ox 98.7 F 86 18 109/68 98 02/24/18 11:36 02/24/18 11:36 02/24/18 11:36 02/24/18 11:36 02/24/18 11:36 Intake & Output 02/23/18 02/24/18 02/25/18 06:59 06:59 06:59 Intake Total 5075 969 5292 Balance 7553 555 5805 Weight 105.5 kg 108.5 kg General appearance: PRESENT: cooperative, mild distress, well-developed, well- nourished. ABSENT: disheveled Respiratory exam: PRESENT: clear to auscultation sophia. ABSENT: rales, rhonchi, wheezes Cardiovascular exam: PRESENT: RRR. ABSENT: diastolic murmur, rubs, systolic murmur Pulses: PRESENT: normal dorsalis pedis pul Vascular exam: PRESENT: normal capillary refill GI/Abdominal exam: PRESENT: Normal bowel sounds, soft, mild tenderness. ABSENT : distended, guarding, rebound Extremities exam: PRESENT: full ROM. ABSENT: calf tenderness, clubbing, pedal edema Neurological exam: PRESENT: alert, awake, oriented to person, oriented to place , oriented to time, oriented to situation Results Laboratory Results: 02/23/18 06:06 02/24/18 09:44 02/24/18 09:44 Sodium 137.7 Potassium 3.2 L Chloride 100 Carbon Dioxide 28 Anion Gap 10 BUN 5 L Creatinine 0.64 Est GFR ( Amer) > 60 Est GFR (Non-Af Amer) > 60 Glucose 159 H Calcium 7.8 L Impressions: Abdomen/Pelvis CT 02/22/18 16:43 IMPRESSION: Moderate wall thickening in the cecum with adjacent mild inflammatory changes. No free fluid. Assessment & Plan - Diagnosis (1) Diverticulitis Is this a current diagnosis for this admission?: Yes Plan: Continue Cipro and Flagyl. I will see where she has been tested for C. difficile, but because of the diarrhea I am going to test for it. (2) Hypomagnesemia Is this a current diagnosis for this admission?: Yes Plan: Resolved (3) Hypokalemia Is this a current diagnosis for this admission?: Yes Plan: Nearly resolved after replacement (4) Nausea & vomiting Qualifiers: Vomiting type: unspecified Vomiting Intractability: intractable Qualified Code(s): R11.2 - Nausea with vomiting, unspecified Is this a current diagnosis for this admission?: Yes Plan: Resolved - Time Time Spent with patient: 25-34 minutes
[2018-02-24] MEDS: METOPROLOL TARTRATE 25 MG TABLET PO SCH (21:55)
[2018-02-25] MEDS: METRONIDAZOLE 500 MG TABLET PO SCH ×4 (02:37→22:07)
[2018-02-25] MEDS: HEPARIN SOD (PORCINE) 5,000 UNIT/ML 1 ML SYRINGE SUBCUT SCH ×3 (05:44→22:07)
[2018-02-25] MEDS: KETOROLAC TROMETHAMINE INJ/PF 30 MG/1 ML SDV IV PRN ×2 (06:01→20:18)
[2018-02-25] MEDS: ASPIRIN 81 MG TABLET, ENT COATED PO SCH (09:59)
[2018-02-25] MEDS: CIPROFLOXACIN 400 MG/D5W RTU 400 MG/200 ML RTUPB IV SCH ×2 (09:59→22:08)
--- NOTE | 2018-02-25 19:19 | PDOC PROGRESS REPORT ---
Subjective Progress Note for:: 02/25/18 - seen on rounds this afternoon Subjective:: states she feels much better today. wants to know when she can go home. still having some diarrhea- c. diff pending. advised that we have to wait for c diff results prior to discharge- she understands Reason For Visit: GE INTRACTABLE NAUSEA VOMITING DIABETES Physical Exam Vital Signs: Temp Pulse Resp BP Pulse Ox 98.4 F 81 17 139/87 H 99 02/25/18 15:13 02/25/18 15:13 02/25/18 15:13 02/25/18 15:13 02/25/18 15:13 Intake & Output 02/24/18 02/25/18 02/26/18 06:59 06:59 06:59 Intake Total 450 1400 200 Balance 450 1400 200 Weight 239 lb 3.225 oz 231 lb 0.711 oz General appearance: PRESENT: no acute distress, obese, well-developed, well- nourished Eye exam: PRESENT: EOMI, PERRLA. ABSENT: scleral icterus Ear exam: PRESENT: normal external ear exam Mouth exam: PRESENT: tongue midline Neck exam: ABSENT: tracheal deviation Respiratory exam: PRESENT: clear to auscultation sophia, symmetrical Cardiovascular exam: PRESENT: +S1, +S2 Pulses: PRESENT: +2 pedal pulses bilateral GI/Abdominal exam: PRESENT: normal bowel sounds, soft. ABSENT: tenderness Extremities exam: ABSENT: joint swelling, pedal edema Neurological exam: PRESENT: alert, awake, oriented to person, oriented to place , oriented to time, oriented to situation, CN II-XII grossly intact Skin exam: PRESENT: dry, warm Results Laboratory Results: 02/23/18 06:06 02/24/18 09:44 Impressions: Abdomen/Pelvis CT 02/22/18 16:43 IMPRESSION: Moderate wall thickening in the cecum with adjacent mild inflammatory changes. No free fluid. Assessment & Plan - Diagnosis (1) Diverticulitis Is this a current diagnosis for this admission?: Yes Plan: c/w cipro and flagyl. still having diarrhea- pending c. diff. likely will d/c with PO antibiotics in AM if c diff is negative. abdominal pain almost resolved - tolerating diet now (2) Diarrhea Qualifiers: Diarrhea type: unspecified type Qualified Code(s): R19.7 - Diarrhea, unspecified Is this a current diagnosis for this admission?: Yes Plan: stable (3) HTN (hypertension) Qualifiers: Hypertension type: unspecified Qualified Code(s): I10 - Essential (primary ) hypertension Is this a current diagnosis for this admission?: Yes Plan: stable, c/w current regimen
[2018-02-25] MEDS: METOPROLOL TARTRATE 25 MG TABLET PO SCH (22:07)
[2018-02-26] MEDS: METRONIDAZOLE 500 MG TABLET PO SCH ×3 (02:16→14:36)
[2018-02-26] MEDS: HEPARIN SOD (PORCINE) 5,000 UNIT/ML 1 ML SYRINGE SUBCUT SCH ×2 (06:09→14:37)
[2018-02-26] MEDS: ASPIRIN 81 MG TABLET, ENT COATED PO SCH (09:30)
[2018-02-26] MEDS: CIPROFLOXACIN 400 MG/D5W RTU 400 MG/200 ML RTUPB IV SCH (09:32)
[2018-02-26] MEDS ORDERED: CIPROFLOXACIN HCL 500 MG TABLET PO SCH (12:00)
[2018-02-26 17:53] LABS: ANION GAP 11 (5-19); BLOOD UREA NITROGEN 7 mg/dL (7-20); CALCIUM 8.6 mg/dL (8.4-10.2); CARBON DIOXIDE 26 mmol/L (22-30); CHLORIDE 102 mmol/L (98-107); GLUCOSE 135 mg/dL (75-110); POTASSIUM 3.5 mmol/L (3.6-5.0); SODIUM 138.9 mmol/L (137-145)
--- NOTE | 2018-02-26 18:41 | PDOC DISCHARGE SUMMARY ---
General - Admit/Disc Date/PCP Admission Date/Primary Care Provider: 02/24/18 14:01 JIMY STONER Discharge Date: 02/26/18 - Additional Information Resuscitation Status: Full Code Prescriptions: Ciprofloxacin HCl [Cipro 500 mg Tablet] 500 mg PO Q12 7 Days #14 tablet Metronidazole [Flagyl 500 mg Tablet] 500 mg PO Q8H 7 Days #21 tablet Potassium Chloride 10 meq PO DAILY 30 Days #30 tablet.er Home Medications: Losartan/Hydrochlorothiazide [Losartan-Hctz 100-25 mg Tab] 1 tab PO QAM Metformin HCl [Glucophage 500 mg Tablet] 1,000 mg PO BIDACBS 03/16/17 Metoprolol Tartrate [Lopressor 25 mg Tablet] 25 mg PO Q12 03/16/17 Omeprazole 20 mg PO DAILY 03/16/17 Ciprofloxacin HCl [Cipro 500 mg Tablet] 500 mg PO Q12 7 Days #14 tablet Metronidazole [Flagyl 500 mg Tablet] 500 mg PO Q8H 7 Days #21 tablet 02/26/18 Potassium Chloride 10 meq PO DAILY 30 Days #30 tablet.er 02/26/18 History of Present Illness History of Present Illness: CARLOS EAGLE is a 42 year old female Hospital Course Hospital Course: 42 year old woman who was admitted by hospitalist for diverticulitis of cecum / Hypokalemia/Hypomagessemia. She was admitted to medical floor and put on IV fluids, IV Ciprofloxacin and Flagyl. She also had replacement of Potassium and Magnesium. She is no longer having abd. pain and diarrhea has reduced remarkably and she is now eating well and stable. She ill be discharged home today to follow up with her PCP, Dr Stoner within 1 week for transition of care. Physical Exam Vital Signs: Temp Pulse Resp BP Pulse Ox 97.9 F 78 18 130/72 H 100 02/26/18 14:57 02/26/18 14:57 02/26/18 14:57 02/26/18 14:57 02/26/18 14:57 Intake & Output 02/25/18 02/26/18 02/27/18 06:59 06:59 06:59 Intake Total 200 200 340 Balance 200 200 340 Weight 104.8 kg 104.9 kg General appearance: PRESENT: no acute distress, cooperative, morbidly obese, well-developed, well-nourished Head exam: PRESENT: atraumatic, normocephalic Eye exam: PRESENT: EOMI, PERRLA Ear exam: PRESENT: normal external ear exam Mouth exam: PRESENT: moist, neck supple, tongue midline Neck exam: PRESENT: full ROM Respiratory exam: PRESENT: clear to auscultation sophia, symmetrical Cardiovascular exam: PRESENT: +S1, +S2 Pulses: PRESENT: +2 pedal pulses bilateral GI/Abdominal exam: PRESENT: normal bowel sounds, soft Rectal exam: PRESENT: deferred Extremities exam: PRESENT: full ROM Musculoskeletal exam: PRESENT: full ROM Neurological exam: PRESENT: alert, awake, oriented to person, oriented to place , oriented to time Psychiatric exam: PRESENT: normal mood Results Laboratory Results: 02/26/18 17:17 02/26/18 17:17 Sodium 138.9 Potassium 3.5 L Chloride 102 Carbon Dioxide 26 Anion Gap 11 BUN 7 Creatinine 0.58 Est GFR ( Amer) > 60 Est GFR (Non-Af Amer) > 60 Glucose 135 H Calcium 8.6 Impressions: Abdomen/Pelvis CT 02/22/18 16:43 IMPRESSION: Moderate wall thickening in the cecum with adjacent mild inflammatory changes. No free fluid. Qualifiers - * PATIENT BEING DISCHARGED WITH ANY OF THE FOLLOWING DIAGNOSIS: No
[2018-02-26 19:22] VITALS: BP 134/71
[2018-02-27] MEDS ORDERED: ASPIRIN 81 MG TABLET, ENT COATED PO SCH (10:00)
== END 2018-02-26 19:43 | disposition home or self-care (01) | DRG 392 ==
LOC: ER 16:03 → INTOOBSV 21:31 → EH 21:31 → 4N 02-23 00:15 → OBSVTOIN 02-24 14:01
PROVIDERS: ADMIT Internal Medicine; ATTEND Internal Medicine
DX: K57.32 Diverticulitis of large intestine without perforation or abscess without bleeding (principal); E87.6 Hypokalemia; E83.42 Hypomagnesemia; E78.5 Hyperlipidemia, unspecified; E11.9 Type 2 diabetes mellitus without complications; I10 Essential (primary) hypertension; K44.9 Diaphragmatic hernia without obstruction or gangrene; Z79.82 Long term (current) use of aspirin; Z79.84 Long term (current) use of oral hypoglycemic drugs; Z79.899 Other long term (current) drug therapy; Z88.1 Allergy status to other antibiotic agents
CPT/HCPCS: 36415; 74177; 80048; 80053; 80307; 81001; 82550; 82553; 83605; 83690; 83735; 84484; 85025; 87040; 87045; 87205; 87324; 87493; 89055; 93005; 93010; 96365; 96375; 99285; G0378; J0744; J1170; J1644; J1885; J2405; J2765; J3010; J3475; J3480; J7030

== ENCOUNTER → 2018-09-25 | Outpatient (CLI) | payer BC ==
--- NOTE | 2018-09-25 12:01 | WOMENS IMAGING REPORT ---
EXAM DESCRIPTION: BILAT SCREENING MAMMO W/CAD COMPLETED DATE/TIME: 09/25/2018 8:05 am REASON FOR STUDY: Z12.31 ROUTINE BILATERAL SCREENING Z12.31 ENCNTR SCREEN MAMMOGRAM FOR MALIGNANT N EOPLASM OF LUCIANO COMPARISON: [id number] TECHNIQUE: Standard craniocaudal and mediolateral oblique views of each breast recorded using Distractifya l acquisition. LIMITATIONS: None. FINDINGS: No masses, calcifications or architectural distortion. No areas of suspicion. Read with the assistance of CAD. .[facility] - R2 Cenova Version 1.3 .[facility] - R2 Cenova Version 2.1 .[facility] - R2 Cenova Version 2.4 .[facility] [place] - R2 Cenova Version 2.4 .[facility] - R2 Punch Machine Operator Version 9.2 IMPRESSION: NORMAL MAMMOGRAM. BIRADS 1. BREAST DENSITY: b. There are scattered areas of fibroglandular density. BIRAD: 1 NEGATIVE RECOMMENDATION: ROUTINE SCREENING COMMENT: The patient has been notified of the results by letter per SA requirements. Additional no tification policies are in place for contacting patient with suspicious or incomplete findings. Quality ID #[id number]: The [employer] recommends an annual screening mammogram for women aged 40 years or over. This facility utilizes a reminder system to ensure that all patients receive reminder letters, and/or direct phone calls for appointments. This includes reminders for routine scr eening mammograms, diagnostic mammograms, or other Breast Imaging Interventions when appropriate. Th is patient will be placed in the appropriate reminder system. The [employer] (ACR) has developed recommendations for screening MRI of the breast s in certain patient populations, to be used in conjunction with mammography. Breast MRI surveillanc e may be appropriate for women with more than 20% lifetime risk of developing breast cancer as deter mined by genetic testing, significant family history of the disease, or history of mantle radiation f or Hodgkins Disease. ACR Practice Guidelines 2008. TECHNICAL DOCUMENTATION: FINDING NUMBER: (1) ASSESSMENT: (1) JOB ID: [id number] [employer]- All Rights Reserved Reading location - IP/workstation name: [email or web address]
== END ==
LOC: WI 07:34
PROVIDERS: ATTEND Internal Medicine
DX: Z12.31 Encounter for screening mammogram for malignant neoplasm of breast (principal)
CPT/HCPCS: 77067

== ENCOUNTER → 2018-11-06 | Outpatient (CLI) | payer BC ==
[2018-11-06 09:59] LABS: ABSOLUTE BASOPHILS # (AUTO) 0.1 10^3/uL (0.0-0.2); ABSOLUTE EOSINOPHILS # (AUTO) 0.2 10^3/uL (0.0-0.6); ABSOLUTE LYMPHOCYTES (AUTO) 2.3 10^3/uL (0.5-4.7); ABSOLUTE MONOCYTES (AUTO) 0.5 10^3/uL (0.1-1.4); ABSOLUTE NEUT (AUTO) 5.4 10^3/uL (1.7-8.2); BASOPHILS % (AUTO) 0.6 % (0-2); HEMATOCRIT 35.5 % (36.0-47.0); HEMOGLOBIN 12.2 g/dL (12.0-15.5); LYMPHOCYTES % (AUTO) 27.5 % (13-45); MEAN CORPUSCULAR HEMOGLOBIN 25.9 pg (27.0-33.4); MEAN CORPUSCULAR HGB CONC 34.3 g/dL (32.0-36.0); MEAN CORPUSCULAR VOLUME 75 fl (80-97); MONOCYTES % (AUTO) 5.4 % (3-13); PLATELET COUNT 258 10^3/uL (150-450); RED BLOOD COUNT 4.71 10^6/uL (3.72-5.28); RED CELL DISTRIBUTION WIDTH 14.2 % (11.5-14.0); SEGMENTED NEUTROPHILS % (AUTO) 64.5 % (42-78); TOTAL CELLS COUNTED % (AUTO) 100 %; WHITE BLOOD COUNT 8.3 10^3/uL (4.0-10.5)
[2018-11-06 10:19] LABS: ALANINE AMINOTRANSFERASE 28 U/L (9-52); ALKALINE PHOSPHATASE 94 U/L (38-126); ANION GAP 13 (5-19); ASPARTATE AMINO TRANSFERASE 18 U/L (14-36); BILIRUBIN,DIRECT 0.3 mg/dL (0.0-0.4); BILIRUBIN,TOTAL 0.4 mg/dL (0.2-1.3); BLOOD UREA NITROGEN 13 mg/dL (7-20); CALCIUM 9.4 mg/dL (8.4-10.2); CARBON DIOXIDE 30 mmol/L (22-30); CHLORIDE 97 mmol/L (98-107); CHOLESTEROL 190.11 mg/dL (0-200); GLUCOSE 121 mg/dL (75-110); POTASSIUM 3.7 mmol/L (3.6-5.0); SODIUM 139.7 mmol/L (137-145); TOTAL PROTEIN 6.8 g/dL (6.3-8.2); TRIGLYCERIDES 273 mg/dL (<150)
[2018-11-06 10:30] LABS: DIRECT LDL 115 mg/dL (<100)
[2018-11-06 10:33] LABS: VLDL CHOLESTEROL 54.6 mg/dL (10-31)
[2018-11-06 10:36] LABS: FREE T4 (FREE THYROXINE) 1.12 ng/dL (0.78-2.19)
[2018-11-06 10:49] LABS: THYROID STIMULATING HORMONE 0.71 uIU/mL (0.47-4.68)
[2018-11-07 11:38] LABS: CREATININE URINE 151.5 mg/dL (Not Estab.); MICROALBUMIN URINE 14.9 ug/mL (Not Estab.)
== END ==
LOC: LAB 09:26
PROVIDERS: ATTEND Internal Medicine
DX: E66.01 Morbid (severe) obesity due to excess calories (principal); E11.9 Type 2 diabetes mellitus without complications; E55.9 Vitamin D deficiency, unspecified; I10 Essential (primary) hypertension
CPT/HCPCS: 36415; 80053; 80061; 82043; 82306; 82570; 83036; 84439; 84443; 85025

== ENCOUNTER → 2019-10-21 | Outpatient (CLI) | payer BC ==
--- NOTE | 2019-10-21 13:48 | RADIOLOGY REPORT (SQ) ---
EXAM DESCRIPTION: CHEST 2 VIEWS IMAGES COMPLETED DATE/TIME: 10/21/2019 1:39 pm REASON FOR STUDY: J20.9 ACUTE BRONCHITIS, UNSPECIFIED COMPARISON: 10/26/2015 EXAM PARAMETERS: NUMBER OF VIEWS: two views TECHNIQUE: Digital Frontal and Lateral radiographic views of the chest acquired. RADIATION DOSE: NA LIMITATIONS: none FINDINGS: LUNGS AND PLEURA: No opacities, masses or pneumothorax. No pleural effusion. MEDIASTINUM AND HILAR STRUCTURES: No masses or contour abnormalities. HEART AND VASCULAR STRUCTURES: Heart normal size. No evidence for failure. BONES: No acute findings. HARDWARE: None in the chest. OTHER: No other significant finding. IMPRESSION: NO ACUTE RADIOGRAPHIC FINDING IN THE CHEST. TECHNICAL DOCUMENTATION: JOB ID: [id number] 2010 [employer]- All Rights Reserved Reading location - IP/workstation name: [email or web address]
== END ==
LOC: RAD 13:19
PROVIDERS: ATTEND Internal Medicine
DX: J20.9 Acute bronchitis, unspecified (principal)
CPT/HCPCS: 71046

== ENCOUNTER → 2019-12-17 | Outpatient (CLI) | payer BC ==
--- NOTE | 2019-12-17 12:39 | WOMENS IMAGING REPORT ---
EXAM DESCRIPTION: BILAT SCREENING MAMMO W/CAD IMAGES COMPLETED DATE/TIME: 12/17/2019 6:27 am REASON FOR STUDY: Z12.31 ENCOUNTER FOR SCREENING MAMMOGRAM FOR MALIGNANT NEOPLASM OF BREAST Z12.31 ENCNTR SCREEN MAMMOGRAM FOR MALIGNANT NEOPLASM OF LUCIANO COMPARISON: 09/25/2018, 08/01/2017, 07/17/2017, 07/30/2015 EXAM PARAMETERS: Standard craniocaudal and mediolateral oblique views of each breast recorded using digital acquisition. Read with the assistance of CAD. .[facility] - [employer]ologist Version 9.2 LIMITATIONS: None. FINDINGS: Findings present which are benign by mammographic criteria. No suspicious masses, calcifi cations or architectural distortion. Pertinent benign findings: Intramammary lymph nodes bilaterally, stable. Benign mammographic findings may include one or more of the following: Smooth masses, popcorn/rim/co arse calcifications, asymmetries, post-procedure changes, and lesions with long-standing stability. IMPRESSION: BENIGN MAMMOGRAPHIC FINDINGS. BIRADS 2 BREAST DENSITY: b. There are scattered areas of fibroglandular density. BIRAD: ASSESSMENT: 2 BENIGN FINDING(S) RECOMMENDATION: ROUTINE SCREENING COMMENT: The patient has been notified of the results by letter per MQSA requirements. Additional no tification policies are in place for contacting patient with suspicious or incomplete findings. Quality ID #[id number]: The [employer] recommends an annual screening mammogram for women aged 40 years or over. This facility utilizes a reminder system to ensure that all patients receive reminder letters, and/or direct phone calls for appointments. This includes reminders for routine scr eening mammograms, diagnostic mammograms, or other Breast Imaging Interventions when appropriate. Th is patient will be placed in the appropriate reminder system. TECHNICAL DOCUMENTATION: FINDING NUMBER: (1) ASSESSMENT: (1) JOB ID: [id number] 2010 [employer]- All Rights Reserved Reading location - IP/workstation name: [email or web address]
== END ==
LOC: WI 07:10
PROVIDERS: ATTEND Internal Medicine
DX: Z12.31 Encounter for screening mammogram for malignant neoplasm of breast (principal)
CPT/HCPCS: 77067